=== PATIENT | male | born 1960 | race Caucasian/White ===

== ENCOUNTER 2018-12-08 02:44 | Observation (INO) ==
[2018-12-07 23:43] LABS: BASO# 0.04 X1000 (0.0-0.2); BASO% 0.6 % (0.0-0.8); EOS# 0.54 X1000 (0.0-0.7); EOS% 7.7 % (0.0-10.0); HEMATOCRIT 44.6 % (42.0-52.0); HEMOGLOBIN 15.4 g/dL (14.0-18.0); IMM GRAN# 0.02 X1000 (0.0-0.04); IMM GRAN% 0.3 % (0.0-0.5); LYMPH# 2.44 X1000 (1.2-3.4); LYMPH% 34.6 % (20.5-51.1); MCH 30.9 PG (27-31); MCHC 34.5 g/dL (33-37); MCV 89.4 FL (81-99); MONO# 1.05 X1000 (0.11-0.59); MONO% 14.9 % (1.7-9.3); MPV 9.4 FL (7.4-10.4); NEUT# 2.96 X1000 (1.4-6.5); NEUT% 41.9 % (42.2-75.2); PLT 243 X1000 (130-400); RBC 4.99 XMIL (4.7-6.1); RDW 13.1 % (11.5-14.5); WBC 7.05 X1000 (4.8-10.8)
[2018-12-07 23:53] LABS: INR 0.91
[2018-12-07 23:54] LABS: PTT 30.6 Seconds (22.3-41.8)
[2018-12-08 00:01] LABS: AGAP 12; ALB/GLOB RATIO 1.5; ALBUMIN 4.3 g/dL (3.5-5.0); ALKALINE PHOSPHATASE 84 U/L (32-122); BUN 16 mg/dL (8-22); CALCIUM 9.1 mg/dL (8.8-10.2); CHLORIDE 102 mmol/L (98-107); CK PROFILE 69 U/L (24-204); COSMO 280; CREATININE 0.7 mg/dL (0.7-1.2); ESTIMATED GFR > 60; GLUCOSE 119 mg/dL (70-104); GOT 19 U/L (10-34); GPT 25 U/L (10-44); POTASSIUM 4.1 mmol/L (3.5-5.1); SODIUM 139 mmol/L (136-145); TCO2 25 mmol/L (25-35); TOTAL BILIRUBIN 0.52 mg/dL (0.20-1.00); TOTAL PROTEIN 7.2 g/dL (6.3-8.3)
--- NOTE | 2018-12-08 01:56 | PROVIDER DOCUMENTATION ---
This chart was entered by Mariaa Zuniga Scribe, acting as scribe for Jarred Frankel MD. HPI-Respiratory General - General Chief Complaint: Chest Pain Stated Complaint: CHEST PAIN/SOB/BODY ACHES Time Seen by Provider: 12/07/18 23:35 Source: patient, family Allergies/Adverse Reactions: Patient Allergies Allergy/AdvReac Type Severity Reaction Status Date / Time Penicillins Allergy Severe ANAPHYLAXIS Verified 10/22/18 11:02 Home Medications: Home Medication List Medication Instructions Recorded Confirmed Last Taken Type Divalproex E.r. [Depakote ER] 1,000 mg PO BID 02/14/13 10/26/18 10/26/18 History Hydrocodone/Acetaminophen 1 tab PO PRN PRN 10/22/18 10/26/18 Unknown History [Hydrocodone-Acetamin 7.5-325] Albuterol Sulfate [Ventolin Hfa] 18 gm IH Q6H #1 hfa.aer.ad 10/23/18 10/26/18 Rx Albuterol 2.5MG/Ipratrop 0.5MG 3 ml INH Q6H PRN PRN #30 neb 11/03/18 Unknown Rx [Duoneb] Alprazolam [Xanax] 1 mg PO 4XDAY PRN PRN #30 tab 11/03/18 Unknown Rx Nebulizer Accessories [Nebulizer] 1 ea MC Q4H PRN PRN #1 kit 11/03/18 Unknown Rx Ketorolac [Toradol] 10 mg PO Q6H PRN PRN #20 tab 11/23/18 Unknown Rx - History of Present Illness-Resp Quality of Pain: reports: tightness Severity in ED: reports: mild Onset/Duration: reports: 1 week ago Timing: reports: still present Exposure: reports: other Cough Quality/Degree: reports: productive cough Episode Frequency: occasional episodes Current Respiratory Medication Therapy: Initiated albuterol/atrovent inhale Modifying Factors: improves with: nothing Associated Symptoms: reports: chest pain/soreness, cough, flu-like symptoms, hurts to breathe, shortness of breath, short of breath Review of Systems - Adult - REVIEW OF SYSTEMS - ADULT Constitutional: reports: see HPI Eyes: reports: no symptoms reported Ears, Nose, Mouth & Throat: reports: no symptoms reported Cardiovascular: reports: see HPI, chest pain Respiratory: reports: cough, pleurisy, shortness of breath Gastrointestinal: reports: no symptoms reported Genitourinary: reports: no symptoms reported Musculoskeletal: reports: no symptoms reported Integumentary: reports: no symptoms reported Neurological: reports: no symptoms reported Psychiatric: reports: no symptoms reported Endocrine: reports: no symptoms reported Hematologic/Lymphatic: reports: no symptoms reported Allergic/Immunologic: reports: no symptoms reported All Other Systems: Reviewed and Negative Past History - Adult - PAST MEDICAL HISTORY-ADULT Review of Records: reports: Nursing Assessment Review Major Childhood Illnesses: reports: denies history Cardiovascular: reports: denies history Respiratory: reports: COPD Gastrointestinal: reports: denies history Obstetrical/Gynecological: reports: denies history Genitourinary: reports: denies history Musculoskeletal: reports: arthritis Neurological: reports: Seizures/Epilepsy Psychiatric: reports: depression Endocrine/Immune: reports: denies history Other Conditions: reports: denies history - PRIOR SURGERIES/PROCEDURES Surgical/Procedure History: reports: reviewed, not pertinent - IMMUNIZATION STATUS Childhood Immunizations: See Nurse Assessment Flu Vaccine: See Nurse Assessment - FAMILY HISTORY Family History: reviewed, not pertinent - SOCIAL HISTORY Smoking: non-smoker Physical Exam-General - PHYSICAL EXAM-ADULT Initial Vital Signs Reviewed: Yes - CONSTITUTIONAL General Appearance: alert, mild distress - EYES Eyes: PERRL/EOMI - HEAD, EARS, NOSE, MOUTH & THROAT HENMT: moist mucous membranes, normal ENT inspection - NECK Neck: non-tender, full range of motion - RESPIRATORY Respiratory: respiratory distress - CARDIOVASCULAR Cardiovascular: normal peripheral pulses, regular rate, rhythm, tachycardia - GASTROINTESTINAL (ABDOMEN) Abdominal Exam: normal bowel sounds, non tender - LYMPHATIC Lymphatic: no adenopathy - MUSCULOSKELETAL Back Exam: normal inspection, no CVA tenderness, no vertebral tenderness Extremity: normal range of motion, non-tender - SKIN Integumentary: normal color, normal turgor, warm/dry - NEUROLOGIC Neurologic: grossly normal, no motor/sensory deficits - PSYCHIATRIC Psych/Mental Status: normal mood/affect, normal thought content, normal thought process Progress - PLAN OF CARE/RESULTS Progress/Plan/Lab Results: Vital Signs - 8 hr 12/07/18 23:25 Temperature 97.6 F Pulse Rate 85 Respiratory Rate 18 Blood Pressure 133/79 O2 Sat by Pulse Oximetry 97 Laboratory Results - last 24 hr 12/07/18 12/07/1819 23:35 23:35 23:35 WBC 7.05 RBC 4.99 Hgb 15.4 Hct 44.6 MCV 89.4 MCH 30.9 MCHC 34.5 RDW Std Deviation 13.1 Plt Count 243 MPV 9.4 Immature Gran % (Auto) 0.3 Neut % (Auto) 41.9 L Lymph % (Auto) 34.6 [place] % (Auto) 14.9 H Eos % (Auto) 7.7 Baso % (Auto) 0.6 Immature Gran # (Auto) 0.02 Neut # (Auto) 2.96 Lymph # (Auto) 2.44 [place] # (Auto) 1.05 H Eos # (Auto) 0.54 Baso # (Auto) 0.04 PT INR PTT (Actin FS) Sodium 139 Potassium 4.1 Chloride 102 Carbon Dioxide 25 Anion Gap 12 BUN 16 Creatinine 0.7 Estimated GFR/1.73 m2 > 60 BUN/Creatinine Ratio 23 Glucose 119 H Calculated Osmolality 280 Calcium 9.1 Total Bilirubin 0.52 AST 19 ALT 25 Alkaline Phosphatase 84 Creatine Kinase 69 Troponin T Lqn-O-Qxxwzgzifgm Pept 30 Total Protein 7.2 Albumin 4.3 Globulin 2.9 Albumin/Globulin Ratio 1.5 12/07/18 12/07/18 23:35 23:35 WBC RBC Hgb Hct MCV MCH MCHC RDW Std Deviation Plt Count MPV Immature Gran % (Auto) Neut % (Auto) Lymph % (Auto) [place] % (Auto) Eos % (Auto) Baso % (Auto) Immature Gran # (Auto) Neut # (Auto) Lymph # (Auto) [place] # (Auto) Eos # (Auto) Baso # (Auto) PT 13.0 INR 0.91 PTT (Actin FS) 30.6 Sodium Potassium Chloride Carbon Dioxide Anion Gap BUN Creatinine Estimated GFR/1.73 m2 BUN/Creatinine Ratio Glucose Calculated Osmolality Calcium Total Bilirubin AST ALT Alkaline Phosphatase Creatine Kinase Troponin T < 0.010 Zsp-A-Fkbgcmxrdig Pept Total Protein Albumin Globulin Albumin/Globulin Ratio Orders Category Date Time Status Cardiac Monitoring DIRECTED Care 12/07/18 23:28 Active Oxygen Therapy- ED Nursing DIRECTED Care 12/07/18 23:28 Active Saline Loc NOW Care 12/07/18 23:28 Active CHEST-2 VIEWS [RAD] Stat Exams 12/07/18 23:28 Taken CBC WITH ELECTRONIC DIFF [HEME] Stat Lab 12/07/18 23:35 Completed CK PROFILE [SP CHEM] Stat Lab 12/07/18 23:35 Completed COMPREHENSIVE METABOLIC PANEL [CHEM] Stat Lab 12/07/18 23:35 Completed PRO B-NATRIURETIC PEPTIDE Stat Lab 12/07/18 23:35 Completed PROTIME WITH INR [COAG] Stat Lab 12/07/18 23:35 Completed PTT [COAG] Stat Lab 12/07/18 23:35 Completed TROPONIN T Stat Lab 12/07/18 23:35 Completed Aspirin Med 12/07/18 23:30 Discontinued 243 mg PO NOW ONE Hydromorphone [Dilaudid] Med 12/08/18 01:06 Discontinued 1 mg IV NOW ONE Ondansetron [Zofran] Med 12/08/18 01:06 Discontinued 4 mg IV NOW ONE CP/SOB/Palp >45 yrs of Age Stat Oth 12/07/18 23:28 Ordered EKG [EKG] Stat Ther 12/07/18 23:28 Ordered heart score 4 Result Diagrams: 12/07/18 23:35 12/07/18 23:35 - EKG 1 Time of EKG reading by physician:: 23:29 EKG Read and Signed by:: Jarred Frankel EKG Interpretation (*Must complete 3 of following elements*): Normal Rate: 74 Rhythm: Norm sin rhy [place]: normal QRS: normal - XRAY 1 XRAY: Bilateral XRAY Study: Chest Impression: Normal (no acute disease per dr. frankel) - CONSULTS/PCP/HOSPITALIST Notification #1 *Consult/PCP/Hospitalist*: Dr. Virk Time Discussed: 01:54 Consult Disposition: Admit Departure - Departure Date of Disposition Decision: 12/08/18 Time of Disposition Decision: 01:27 DIAGNOSIS: Chest pain Disposition: ADMITTED INPATIENT 09 Certified Medical Emergency: Emergent Condition: Stable Referrals and Follow-Ups: Rachel Sarah MD [Primary Care Provider] - - Critical Care Note This patient required my direct & personal management of CC.: No Attestation - Physician/ MAURO Attestation Patient care was provided by Advanced Practice Provider:: No The physician spent face to face time with patient:: Yes Advanced Practice Provider documentation review:: Supervising physician onsite and consulted in the evaluation and care of this patient. The physician did have a face to face encounter with the patient. This chart was documented by the indicated scribe, (Mariaa Zuniga, Wilberto) and accurately reflects the services I performed and decisions made by me, Jarred Frankel MD, as attested by the provider's signature.
[~2018-12-08 02:44] MED LIST: ASPIRIN PO ONE; ASPIRIN PR ONE; DILAUDID IV ONE; ZOFRAN IV ONE
[2018-12-08] MEDS: NS 1,000 ML IV SCH ×3 (02:45→20:13)
[2018-12-08] MEDS: LOVENOX SUBQ SCH (02:45)
[2018-12-08] MEDS ORDERED: VENTOLIN HFA INH PRN (03:00)
[2018-12-08 03:13] LABS: CHOLESTEROL 178 mg/dL (0-200); HDL 44 mg/dL (35-55); LDL 115 mg/dL; TRIGLYCERIDES 93 mg/dL (39-160); VLDL 19 mg/dL
--- NOTE | 2018-12-08 03:24 | HISTORY AND PHYSICAL ---
PCP: Dr. Sarah. PRESENTING COMPLAINT: Shortness of breath and chest pain. HISTORY OF PRESENT COMPLAINT: Mr. Goodman is a 58-year-old male, who has recently been diagnosed with COPD, uses intermittent nebulization at home, and he has also stopped smoking for the past 2 months. Mr. Goodman refers that for the past week, he has been getting extremely winded especially on exertion. But today, he had done some work after which he went to sit down in a recliner, and he started having this chest pain, which started on a scale of about 4/10 and then progressively got worse. It was retrosternal in nature. Did not really move to anywhere, but it made both hands numb, and he felt slightly nauseated, but did not vomit. It was also associated with some dizziness. So he came to the emergency department, where he was evaluated and because of his age and risk factors. We are being consulted for cardiac risk stratification. On presentation, his blood pressure is 133/79. Pulse is 85. Respiration is 18. Temperature is 97.5 degrees. PAST MEDICAL HISTORY: 1. Recently admitted for questionable TIA. MRI was negative. 2. Seizures on Depakote. 3. Migraine headaches. 4. Newly diagnosed COPD. FAMILY HISTORY: 1. Positive for lung cancer. 2. Brother who also from COPD. SOCIAL HISTORY: The patient is has a 68-ckml-eesr history of smoking, but stopped about 2 months ago. Currently . Denies using alcohol or any illicit drugs. ALLERGIES: Penicillin. When I asked what it does to him, he said, "According to the , it makes him go crazy." PAST SURGICAL HISTORY: Right shoulder repair - surgery. REVIEW OF SYSTEM: A 14 point review of system conducted with Mr. Goodman unremarkable except what we have in the HPI. PHYSICAL EXAM: VITAL SIGNS: Blood pressure is 133/79, pulse is 85, respirations 18, temperature is 97.6 degrees. Patient is saturating 97% on room air. GENERAL: Mr. Goodman is a 58-year-old male. He is in bed. He did not seem to be in any cardiopulmonary distress. HEENT: Mucosa is pink and moist. Anicteric. Acyanotic. NECK: Was supple. There was no JVD. No carotid bruit. RESPIRATORY SYSTEM: Air entry was bilaterally reduced. There is prolonged expiratory phase of respiration, but no crackles, no rhonchi. CARDIOVASCULAR: Regular rate and rhythm. No murmurs, no rubs, no gallops. [place] beat was at 5th intercostal space, midclavicular line. GI: Abdomen was soft, nontender. Bowel sounds were present. There is no hepatosplenomegaly. Inguinal region is unremarkable. : Unremarkable. EXTREMITIES: No pedal edema. Distal pulses were present. 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 There is no focal neurological deficit. Executive function seems to be intact. The patient is very cooperative. Cranial nerves 2-12 have been grossly examined, and they are unremarkable. The patient obeys commands. Moves all extremities. Power is 5/5 in all. Sensation is intact. PSYCH: Mr. Goodman is very cooperative. Has good insight and judgment. LABORATORY DATA: WBC is 7.05, hemoglobin is 15.4, platelet count of 243,000. Chemistry is also reviewed and is completely normal. DIAGNOSTIC STUDIES: 1. A chest x-ray showed no acute pathology, the changes that is consistent with a history of COPD. 2. EKG shows normal sinus rhythm, questionable left ventricle hypertrophy. 3. Review of previous echocardiogram from 10/26/2018 showed ejection fraction was about 60%, and Doppler suggest grade 1 ventricular diastolic dysfunction. DISCUSSION: Mr. Goodman, who has extensive history of tobacco abuse, stopped just about 2 months ago upon the diagnosis of chronic obstructive pulmonary disease, comes in what appears to be atypical chest pain to rule out any coronary artery disease. ASSESSMENT: 1. Atypical chest pain in patient with comorbidities including borderline blood pressure elevation and extensive history of tobacco abuse. Pain sounds to be exertional in nature, so I think it is reasonable to admit him, and do cardiac risk stratification before he gets discharged. We will also going to be trending his troponin and repeat his EKG in the morning. 2. Recently diagnosed chronic obstructive pulmonary disease. The patient is currently not in exacerbation. We will continue p.r.n. nebulization if needed. 3. Borderline high blood pressure. We are going to continue to monitor this. So in general, we are going to admit Mr. Goodman on the medical floor and keep him NPO. He just had an echo last October, so will not repeat this. But we will get Cardiology to evaluate him. We will also get a stress test and go from there. If stress test is all negative, I think we can discharge him. cc: Keith Virk MD
--- NOTE | 2018-12-08 07:12 | Diag Imaging Result Doc PS360 ---
EXAM: CHEST-2 VIEWS 12/07/2018 HISTORY: CP/SOB TECHNIQUE: PA and lateral chest COMMENT: There has been no significant change in the appearance the chest since 11/23/2018. IMPRESSION: Stable chest. Electronically signed by Nixon Jin 12/08/2018 7:10 AM
--- NOTE | 2018-12-08 07:32 | EKG Report ---
Test Performed on : 12/07/2018 11:29:41 PM Test Reason : SOB,CP Blood Pressure : / mmHG Vent. Rate : 074 BPM Atrial Rate : 074 BPM P-R Int : 164 ms QRS Dur : 090 ms QT Int : 360 ms P-R-T Axes : 039 061 072 degrees QTc Int : 399 ms Normal sinus rhythm. Normal ECG When compared with ECG of 23-NOV-2018 18:20, (Unconfirmed) No significant change was found Unconfirmed Result
--- NOTE | 2018-12-08 09:58 | PROGRESS NOTE ---
DATE: 12/08/2018 INTERVAL HISTORY: Mr. Goodman is a 58-year-old man with recently diagnosed COPD, who is admitted for exertional chest pain and shortness of breath, numbness in hands, nausea, and dizziness. He has also been complaining of runny nose and yellowish expectoration. On admission, his troponins were negative. EKG had normal sinus rhythm. Chest x-ray was unremarkable. The patient is about to undergo for nuclear medicine stress test for cardiac risk factor stratification, considering his history of smoking and age, being risk factors for coronary artery disease. SUBJECTIVE: Currently, he is feeling fair. He is denying further chest pain episodes since coming to the hospital. He is still feeling a little congested in the chest and complaining of some substernal chest pain, which is not reproducible. VITALS: Temperature 97.7 degrees, pulse 72, blood pressure 120/70, saturating 96% on room air. PHYSICAL EXAMINATION: General: Does not appear in any acute distress. Nasal cavity: He has erythematous nasal turbinates with some mucoid discharge. Oral cavity: Moist. Some postnasal drip without pharyngeal congestion. Lungs: Air entry bilateral equal. No wheeze, rhonchi, or crackles. Cardiovascular: S1, S2 normal. No murmur, rub, or gallop. Abdomen: Soft, nontender. Extremities: No lower extremity edema. Neurologic: Alert and oriented x3. LABS: Suggestive of no leukocytosis. Normal hemoglobin, hematocrit, platelet count, normal electrolytes. Normal kidney function. Negative troponins. Microbiology: Flu screen has been ordered. IMAGING: Chest x-ray was unremarkable. EKG had normal sinus rhythm. ASSESSMENT AND PLAN: 1. Atypical chest pain with risk factors of age, male gender, tobacco use. His chest pain was occasionally exertional. Follow up with nuclear medicine stress test for cardiac risk stratification. 2. Nasal congestion, subjective feeling of shortness of breath, and expectoration without wheezing. Follow up with influenza screen. 3. History of chronic obstructive pulmonary disease. The patient was counseled about quitting smoking, which he already has since last 3 months. Continue albuterol/ ipratropium nebulization as needed. 4. Borderline high blood pressure on admission, now has resolved. 5. History of seizure disorder and migraine. Continue home Depakote. 6. History of anxiety. Continue home alprazolam. 7. Deep venous thrombosis prophylaxis on enoxaparin. 8. Disposition. I will await nuclear medicine stress test and patient's chest pain shortness of breath to improve. We will also await cardiology recommendation about need for aspirin for primary cardiovascular prevention in the future. Plan of care was discussed with him. All of his questions have been answered. If his symptoms resolve and nuclear medicine stress test is unremarkable, the patient can be discharged home on December 09. cc: Jase Osuna MD
[2018-12-08] MEDS: DEPAKOTE ER PO SCH ×2 (10:02→20:03)
[2018-12-08] MEDS: NORCO-7.5 PO PRN ×2 (10:07→20:20)
[2018-12-08] MEDS: DUONEB (A & A) INH PRN ×2 (10:13→21:30)
[2018-12-08] MEDS ORDERED: BLISTEX MEDICATED BERRY LIP BALM TOP ONE (10:20)
[2018-12-08] MEDS ORDERED: FLU VACCINE IM ONE (11:36)
--- NOTE | 2018-12-08 14:41 | CARDIOLOGY CONSULTATION ---
DATE: 12/08/2018 CHIEF COMPLAINT ON PRESENTATION: Chest pain, shortness of breath. HISTORY OF PRESENT ILLNESS: Mr. Goodman is a 58-year-old white male with a history of COPD, who has had issues with chest discomfort for the last 2 to 3 days. It has since resolved. During that 2-day or so, he had constant tightness in his chest. He reported no provokers or palliators, other than he thinks drinking some fruit juices that he would do, would improve it to some extent. He has had some cough lately with increased productivity. He has had some nasal congestion and sore throat. He was apparently out in the cold and felt like he might have caught an upper respiratory infection. He has not had any fevers. He is not having any orthopnea. He does not have any chest pain at present. PAST MEDICAL HISTORY: Significant for: 1. COPD. 2. Seizures. 3. Migraines. 4. Possible. SOCIAL HISTORY: He quit smoking around 2 months ago after a 30-drxw-norw history. He is . No current alcohol or illicit drugs. FAMILY HISTORY: Significant for hypertension. REVIEW OF SYSTEMS: A 10-system review of systems is negative except for those things mentioned in HPI. OBJECTIVE: Vital signs: He is afebrile, heart rate is 70, blood pressure is 110/68. General: He is in no acute distress. HENT: Oropharynx is moist. Poor dentition. Eye: [place] conjunctivae. White sclerae. Neck: Examination shows no obvious thyromegaly or thyroid tenderness. Cardiovascular: He sounds to be in a regular rate and rhythm. He has no obvious murmurs. He has no S3. He has no lower extremity edema. No carotid bruits. Chest: Exam sounds relatively clear to auscultation bilaterally. He has no increased work of breathing. Abdomen: Soft, nontender, nondistended. He has no obvious organomegaly. Skin: Warm and dry throughout without any rashes. Neurological: He is moving all extremities well. He has no lateralizing deficits. Psychiatric: He is alert and oriented and pleasant. He has normal mood and affect. PERTINENT DATA: He had an EKG that showed sinus rhythm. No signs of infarct. No signs of acute ischemic changes or injury pattern. His chest x-ray was unremarkable, being normal. His white count is 7, his hematocrit is 44, his platelet count is 243,000. His sodium is 139, potassium 4.1, BUN 16, creatinine 0.7. His cardiac enzymes are negative times multiple sets. His LDL was 115, his HDL was 44. ASSESSMENT: Mr. Goodman is a 58-year-old gentleman with risk factors for heart disease, who presented with atypical chest pain. PLAN: Patient has since had a nuclear perfusion scan which showed no evidence of ischemia and a normal ejection fraction. At this point, he could be discharged home from a cardiovascular standpoint. He can follow up with his primary care physician. I would recommend continued aggressive risk factor modification with continued smoking cessation. cc: Dave Chase MD
[2018-12-08] MEDS: XANAX PO PRN (17:22)
[2018-12-08] MEDS: ZOFRAN IV PRN (17:22)
[2018-12-09] MEDS: LOVENOX SUBQ SCH (03:35)
[2018-12-09] MEDS: DUONEB (A & A) INH PRN ×2 (03:37→10:49)
[2018-12-09 07:18] LABS: BASO# 0.05 X1000 (0.0-0.2); BASO% 1.1 % (0.0-0.8); EOS% 8.8 % (0.0-10.0); HEMATOCRIT 42.9 % (42.0-52.0); HEMOGLOBIN 14.7 g/dL (14.0-18.0); LYMPH# 1.62 X1000 (1.2-3.4); LYMPH% 35.5 % (20.5-51.1); MCH 30.9 PG (27-31); MCHC 34.3 g/dL (33-37); MCV 90.1 FL (81-99); MONO# 0.57 X1000 (0.11-0.59); MONO% 12.5 % (1.7-9.3); MPV 9.5 FL (7.4-10.4); NEUT# 1.92 X1000 (1.4-6.5); NEUT% 42.1 % (42.2-75.2); PLT 221 X1000 (130-400); RBC 4.76 XMIL (4.7-6.1); RDW 13.2 % (11.5-14.5); WBC 4.56 X1000 (4.8-10.8)
[2018-12-09 07:24] LABS: INR 0.96; PROTIME 13.6 Seconds (11.0-16.0)
[2018-12-09 07:40] LABS: AGAP 9; ALB/GLOB RATIO 1.5; ALBUMIN 3.7 g/dL (3.5-5.0); ALKALINE PHOSPHATASE 79 U/L (32-122); BUN 9 mg/dL (8-22); CALCIUM 8.9 mg/dL (8.8-10.2); CHLORIDE 104 mmol/L (98-107); COSMO 276; CREATININE 0.7 mg/dL (0.7-1.2); ESTIMATED GFR > 60; GLUCOSE 93 mg/dL (70-104); GOT 13 U/L (10-34); GPT 19 U/L (10-44); MAGNESIUM 2.1 mg/dL (1.5-2.7); POTASSIUM 4.2 mmol/L (3.5-5.1); SODIUM 139 mmol/L (136-145); TCO2 26 mmol/L (25-35); TOTAL BILIRUBIN 0.81 mg/dL (0.20-1.00); TOTAL PROTEIN 6.2 g/dL (6.3-8.3)
[2018-12-09] MEDS: DEPAKOTE ER PO SCH ×2 (08:47→20:17)
[2018-12-09] MEDS: ZOFRAN IV PRN (08:48)
--- NOTE | 2018-12-09 09:38 | Diag Imaging Result Document ---
PROCEDURE NAME: MYOCARDIAL PERF SCAN, STR/REST - 12/08/2018 PROCEDURE PERFORMED: Lexiscan Cardiolite stress test. FINDINGS: Lexiscan was infused per standard protocol. There was no chest pain. Stress electrocardiogram was negative for ischemia. Following Lexiscan infusion, Cardiolite was injected. There were 10.8 mCi of Cardiolite injected for the rest phase and 30.9 mCi of Cardiolite injected for the stress phase. Gated SPECT images were obtained in standard views. Images revealed diaphragmatic and chest wall attenuation. There is no evidence of ischemia. There is fixed defect, moderate size, in the inferior wall and in the inferoapical wall suggestive of scar or attenuation defect. Left ventricular ejection fraction by gated SPECT was 79%. CONCLUSIONS: 1. No chest pain. 2. Negative Lexiscan stress electrocardiogram. 3. Myocardial perfusion images revealed no evidence of ischemia. 4. There is significant diaphragmatic and chest wall attenuation. There is moderate-size fixed defect in the inferior, inferoapical wall. This could represent attenuation defect versus scar. Would recommend clinical correlation. 5. Left ventricular ejection fraction 79%. cc: MD Keith Millan MD
[2018-12-09] MEDS: NORCO-7.5 PO PRN ×2 (10:57→18:41)
[2018-12-09] MEDS ORDERED: SOLU-MEDROL IV ONE (14:48)
[2018-12-09] MEDS ORDERED: SOLU-MEDROL IV SCH (15:00)
[2018-12-09] MEDS: DUONEB (A & A) INH SCH ×3 (15:24→23:42)
[2018-12-09] MEDS: PROTONIX IV SCH (15:50)
[2018-12-09] MEDS: FLONASE NAS SCH (15:51)
--- NOTE | 2018-12-09 15:58 | PROGRESS NOTE ---
DATE: 12/09/2018 SUBJECTIVE: This patient is still complaining of chest pain which is atypical. He got a stress test that is negative for any acute ischemic lesion. He has been complaining of cough with some yellowish phlegm. Today, he has some end expiratory wheezing. He has a history of COPD and he stopped smoking about 2 months ago. He also has been having nausea and vomiting, and he states that he has epigastric pain, some burning-like sensation. So, I will put this patient on PPIs twice a day, Carafate. I will put this patient on a little bit of steroids because of his wheezing. I will start this patient on azithromycin as well and breathing treatment. He has been having some runny nose as well, but now he feels like he cannot breathe through his nose. OBJECTIVE: Vital Signs: Temperature 97.3 degrees, pulse 76, respiratory rate 14, blood pressure 108/67, oxygen saturation 95% on room air. HEENT: Head: Normocephalic, no trauma. PERRLA. Poor dentition, multiple cavities. Neck: Supple. No JVD. Central trachea. Submandibular lymphadenopathy which are painful. Chest: Decreased breath sounds globally. Prolonged expiratory phase with faint end expiratory wheezing at the bases. Abdomen: Soft, nontender, nondistended. No hepatosplenomegaly. Extremities: No edema. No clubbing. No cyanosis. Neurological examination: The patient is alert and oriented x3. No focal deficits. LABORATORY: WBC 4.5, hemoglobin 14.7, hematocrit 42.9, platelets 221. Sodium 139, potassium 4.2, chloride 104, bicarbonate 26. BUN 9, creatinine 0.7, glucose 93, calcium 8.3, albumin 3.7. ASSESSMENT AND PLAN: 1. Atypical chest pain. This is likely secondary to a bronchitis and/or severe gastritis. For that I will put this patient on proton pump inhibitors, Carafate, antibiotics, breathing treatment and will monitor. Steroids. 2. Nasal congestion. I will use Nasonex to see if that helps. Influenza A and B have been negative. 3. Chronic obstructive pulmonary disease with mild exacerbation. He stopped smoking 2 months ago, and his plan is to continue that way. I have placed this patient on scheduled breathing treatment. He is wheezing a little bit and having some green-yellowish phlegm. Also, I will put this patient on antibiotics. 4. History of seizure disorder and migraine. Continue with his home medications. 5. History of anxiety. Continue with alprazolam. 6. Deep vein thrombosis prophylaxis with Lovenox. This patient had a stress test done that did not show any acute abnormality. do believe his symptoms are more related to a combination of gastritis and mild COPD. I will treat him for that and I will continue with the same management. I believe this patient can be discharged in 1 or 2 days. cc: Addison King MD
[2018-12-09] MEDS: ZITHROMAX 500 MG/NS 500 MG/250 ML IVPB IV SCH (16:01)
[2018-12-09] MEDS: TESSALON PO SCH (16:09)
[2018-12-09] MEDS: XANAX PO PRN (16:09)
[2018-12-09] MEDS: CARAFATE PO SCH ×2 (16:09→20:17)
[2018-12-09] MEDS: SOLU-MEDROL IV SCH (20:17)
[2018-12-10] MEDS: SODIUM CHLORIDE 0.9% INJ SCH ×2 (02:58→19:40)
[2018-12-10] MEDS: ZOFRAN IV PRN ×2 (02:58→08:56)
[2018-12-10] MEDS: LOVENOX SUBQ SCH (02:58)
[2018-12-10] MEDS: PROTONIX IV SCH ×2 (02:58→19:40)
[2018-12-10] MEDS: DUONEB (A & A) INH SCH ×6 (03:34→23:00)
[2018-12-10] MEDS: XANAX PO PRN ×4 (04:33→20:23)
[2018-12-10] MEDS: SOLU-MEDROL IV SCH ×2 (04:34→19:40)
[2018-12-10] MEDS: CARAFATE PO SCH ×4 (06:25→20:23)
--- NOTE | 2018-12-10 06:42 | Diag Imaging Result Doc PS360 ---
EXAM: CHEST-PORTABLE HISTORY: dyspnea TECHNIQUE: Portable chest single view COMPARISON: 12/07/2018 FINDINGS: The lungs are well expanded. The heart is not enlarged. The vessels are not distended. There are no infiltrates. No effusion identified. IMPRESSION: Negative exam. Electronically signed by Feliberto Reid 12/10/2018 6:39 AM
[2018-12-10 07:52] LABS: HEMATOCRIT 40.8 % (42.0-52.0); HEMOGLOBIN 13.7 g/dL (14.0-18.0); IMM GRAN# 0.02 X1000 (0.0-0.04); IMM GRAN% 0.2 % (0.0-0.5); LYMPH# 0.58 X1000 (1.2-3.4); LYMPH% 7.1 % (20.5-51.1); MCH 30.1 PG (27-31); MCHC 33.6 g/dL (33-37); MCV 89.7 FL (81-99); MONO# 0.15 X1000 (0.11-0.59); MONO% 1.8 % (1.7-9.3); MPV 9.9 FL (7.4-10.4); NEUT# 7.38 X1000 (1.4-6.5); NEUT% 90.9 % (42.2-75.2); PLT 224 X1000 (130-400); RBC 4.55 XMIL (4.7-6.1); RDW 12.7 % (11.5-14.5); WBC 8.13 X1000 (4.8-10.8)
[2018-12-10 08:09] LABS: AGAP 16; BUN 14 mg/dL (8-22); CALCIUM 9.7 mg/dL (8.8-10.2); CHLORIDE 96 mmol/L (98-107); COSMO 276; CREATININE 0.9 mg/dL (0.7-1.2); ESTIMATED GFR > 60; GLUCOSE 165 mg/dL (70-104); SODIUM 136 mmol/L (136-145); TCO2 24 mmol/L (25-35)
[2018-12-10 08:21] LABS: BANDS 2 % (0-1); LYMPHS 6 % (21-51); SEGS 92 % (42-75)
[2018-12-10] MEDS: DEPAKOTE ER PO SCH ×2 (08:32→20:23)
[2018-12-10] MEDS: FLONASE NAS SCH (08:32)
[2018-12-10] MEDS: TESSALON PO SCH ×3 (08:32→19:45)
[2018-12-10] MEDS: NORCO-7.5 PO PRN ×2 (08:38→20:23)
[2018-12-10] MEDS ORDERED: PHENERGAN IV PRN (13:25)
[2018-12-10] MEDS ORDERED: SODIUM CHLORIDE 0.9% INJ PRN (13:25)
--- NOTE | 2018-12-10 15:27 | PROGRESS NOTE ---
DATE: 12/10/2018 SUBJECTIVE: This patient is still complaining of nausea, vomiting, as per the nurse he is not able to keep anything down not even the pills, physical exam he is short of breath. He is wheezing more than yesterday and he is still having epigastric discomfort with some burning sensation there. He is extremely anxious about his COPD because he has family members that because of this disease. We have placed this patient on his Xanax, I will continue with Zofran, I have placed a consult for Gastroenterology Department to treat possible severe gastritis versus intractable nausea and vomiting. Vital signs look okay. He has been tachycardic on and off but the respiratory rate has been stable. Occasionally the respiratory rate goes over 20 to 21, 22. Oxygen saturation in the low 90s without oxygen. OBJECTIVE: Vital Signs: Temperature 98.1 degrees, pulse 106, respiratory rate 16, blood pressure 107/57, oxygen saturation 94 on room air. HEENT: Head normocephalic. No trauma. PERRLA. Poor dentition. Multiple cavities. Neck: Supple. No JVD. Central trachea. Submandibular lymphadenopathy which are painful. Chest: Decreased breath sounds globally. Prolonged expiratory phase with expiatory wheezing. Abdomen: Soft, some tenderness to palpation at the level of the epigastric area, nondistended. No hepatosplenomegaly. Neurological: The patient is alert and oriented x3, he looks anxious today, no focal deficit. LABORATORY: WBC 8.1, hemoglobin 13.7, hematocrit 40.8, platelets 224,000, sodium 136, potassium 5, chloride 96, bicarbonate 24, BUN 14, creatinine 0.9, glucose 165, calcium 9.7. ASSESSMENT AND PLAN: 1. Atypical chest pain, I do believe this is secondary to bronchitis/ mild chronic obstructive pulmonary disease exacerbation, severe gastritis, I will continue PPIs, Carafate, antibiotics, breathing treatment, I have requested an evaluation by Gastroenterology Department, he has been having nausea and vomiting. 2. Nausea and vomiting as above. Continue with Zofran. 3. Chronic obstructive pulmonary disease exacerbation, he stopped smoking 2 months ago, I have placed this patient on scheduled breathing treatment, he is coughing up a little bit of yellowish phlegm, I will continue with antibiotics, steroids. 4. Possible severe gastritis. Continue with Carafate and PPIs. 5. History of seizure disorder and migraine, continue home medications. 6. History of anxiety, he looks really anxious today, I will continue with his medications that he has been taking at home. 7. Deep vein thrombosis prophylaxis with Lovenox. cc: Addison iKng MD
[2018-12-10] MEDS: ZITHROMAX 500 MG/NS 500 MG/250 ML IVPB IV SCH (19:40)
[2018-12-11] MEDS: DUONEB (A & A) INH SCH ×5 (03:30→19:15)
[2018-12-11] MEDS: LOVENOX SUBQ SCH (06:24)
[2018-12-11] MEDS: CARAFATE PO SCH ×4 (06:24→20:36)
[2018-12-11] MEDS: PROTONIX IV SCH ×2 (06:24→16:03)
[2018-12-11] MEDS: SOLU-MEDROL IV SCH ×2 (06:24→16:03)
[2018-12-11 07:32] LABS: AGAP 11; BUN 13 mg/dL (8-22); CALCIUM 9.7 mg/dL (8.8-10.2); CHLORIDE 101 mmol/L (98-107); COSMO 281; CREATININE 0.7 mg/dL (0.7-1.2); ESTIMATED GFR > 60; GLUCOSE 130 mg/dL (70-104); POTASSIUM 4.5 mmol/L (3.5-5.1); SODIUM 140 mmol/L (136-145); TCO2 28 mmol/L (25-35)
[2018-12-11] MEDS: NORCO-7.5 PO PRN ×2 (08:21→15:59)
[2018-12-11] MEDS: TESSALON PO SCH ×3 (08:22→20:36)
[2018-12-11] MEDS: XANAX PO PRN ×2 (08:22→16:00)
[2018-12-11] MEDS: DEPAKOTE ER PO SCH ×2 (08:22→20:37)
[2018-12-11] MEDS: FLONASE NAS SCH (08:23)
[2018-12-11] MEDS: SODIUM CHLORIDE 0.9% INJ SCH (16:03)
[2018-12-11] MEDS: ZITHROMAX 500 MG/NS 500 MG/250 ML IVPB IV SCH (18:25)
[2018-12-11 19:39] LABS: UR AMPHETAMINES QUAL NONE DETECTED (NONE DETECT); UR BARBITUATES QUAL NONE DETECTED (NONE DETECT); UR BENZODIAZEPIN QUAL PRESUMPTIVE POSITIVE (NONE DETECT); UR CANNABINOIDS QUAL NONE DETECTED (NONE DETECT); UR COCAINE QUAL NONE DETECTED (NONE DETECT); UR METHADONE QUAL NONE DETECTED (NONE DETECT); UR OPIATES QUAL PRESUMPTIVE POSITIVE (NONE DETECT); UR OXYCODONE QUAL NONE DETECTED (NONE DETECT); UR PCP QUAL NONE DETECTED (NONE DETECT)
[2018-12-11 20:25] VITALS: BP 114/62
[2018-12-11 20:51] LABS: HEMATOCRIT 42.1 % (42.0-52.0); HEMOGLOBIN 14.1 g/dL (14.0-18.0); IMM GRAN# 0.02 X1000 (0.0-0.04); IMM GRAN% 0.2 % (0.0-0.5); LYMPH# 0.59 X1000 (1.2-3.4); LYMPH% 5.7 % (20.5-51.1); MCH 30.9 PG (27-31); MCHC 33.5 g/dL (33-37); MCV 92.1 FL (81-99); MONO% 4.9 % (1.7-9.3); MPV 9.8 FL (7.4-10.4); NEUT# 9.17 X1000 (1.4-6.5); NEUT% 89.2 % (42.2-75.2); PLT 217 X1000 (130-400); RBC 4.57 XMIL (4.7-6.1); RDW 13.3 % (11.5-14.5); WBC 10.28 X1000 (4.8-10.8)
[2018-12-11 21:28] LABS: LYMPHS 7 % (21-51); MONO 1 % (1-9); SEGS 92 % (42-75)
[2018-12-11 21:29] LABS: HYPOCHROM OCCASIONAL
--- NOTE | 2018-12-11 23:06 | PROGRESS NOTE ---
DATE: 12/11/2018 SUBJECTIVE: This patient is not complaining of nausea and vomiting at this moment, as per the nurse when he gets water or any kind of drinks he drinks a lot and then he started having nausea or vomiting, I sat with the patient for at least 50 minutes, his vital signs are stable as well as his lab work, he is medically clear to be discharged but he is really anxious and he is depressed. While talking to the patient he was crying on and off, he state that he does not want to be a problem for his family, he state that he does not want them to be dealing with his problem, he state that there is no reason to basically be alive, he said I would put a gun in my head and shoot myself, then I tried to talk more about the reason why he believes he is depressed and anxious, he said that since he find out that he has COPD he stopped smoking, he started drinking more fruit juice, eating more healthy and even though he is doing that he feels about the same. He cannot do any kind of physical activity, he also told me that he saw his brother dying in front of him and that will happen to him that is why he does not want the family to be around when that happened, when he dies. I told him I do not want to send you home because I do not want you to hurt yourself, he responded to me doctor believe me I will do what I said. Like I mentioned before, all the vital signs and laboratory are stable, medically he is clear but he is severely depressed and anxious. OBJECTIVE: Vital Signs: Temperature 97.9 degrees, pulse 80, respiratory rate 18, blood pressure 102/66, oxygen saturation 97 on room air. HEENT: Head normocephalic. No trauma. PERRLA. Neck: Supple. No JVD. No masses. Central trachea. Chest: Clear to auscultation. Decreased breath sounds mostly at the bases with a prolonged expiratory phase. No wheezing. Abdomen: Soft, some tenderness to palpation at the level of the epigastric area. Nondistended. No hepatosplenomegaly. Neurological: This patient is alert and oriented x3. He is anxious and depressed, he has been crying during my conversation on and off, he has been thinking about killing himself and the plan is to put a gun in his head. LABORATORY: Sodium 140, potassium 4.5, chloride 101, bicarbonate 28, BUN 13, creatinine 0.7, glucose 130, calcium 9.7. ASSESSMENT AND PLAN: 1. Atypical chest pain status post a stress test which has been negative, probably was more related to bronchitis/mild chronic obstructive pulmonary disease but I feel is already resolved, will continue with the same management and if his discharged or transferred he can go with p.o. medication. 2. Nausea and vomiting, resolved. As long as he is not eating a lot of water continuously he feels okay. 3. Chronic obstructive pulmonary disease exacerbation, he stopped smoking 2-1/2 months ago. I have placed this patient on scheduled breathing treatment, his cough is better and actually during my interview today he did not cough, I will continue with antibiotics and I will change the steroids to p.o. 4. Possible gastritis, continue with Carafate and PPIs. 5. History of seizure disorder and migraine, continue with home medication. 6. History of anxiety, he has been looking anxious for a few days. I will continue with the medication that he was taking at home but he also is depressed. 7. Depression, as per the patient he does not want the family to be around when he dies but in the other hand he states that nobody has been visiting him, everybody is too busy to come, they do not care about me, he has been thinking about killing himself and the plan is to put a gun in his head. We will contact [facility] for a psychiatry evaluation. I do not feel safe sending this patient home. cc: Addison King MD
--- NOTE | 2018-12-13 06:02 | EKG Report ---
Test Performed on : 12/11/2018 8:24:45 PM Test Reason : transfer to [facility] Blood Pressure : / mmHG Vent. Rate : 084 BPM Atrial Rate : 084 BPM P-R Int : 152 ms QRS Dur : 090 ms QT Int : 352 ms P-R-T Axes : 077 043 052 degrees QTc Int : 415 ms Normal sinus rhythm. Normal ECG When compared with ECG of 07-DEC-2018 23:29, (Unconfirmed) No significant change was found Unconfirmed Result
--- NOTE | 2018-12-15 01:55 | DISCHARGE SUMMARY ---
ADMISSION DATE: 12/10/2018 DISCHARGE DATE: 12/11/2018 DISCHARGE DIAGNOSIS: 1. Atypical chest pain status post stress test which has been negative. 2. Nausea and vomiting, resolved. 3. Possible gastritis. 4. Severe depression with suicidal ideation. 5. Mild chronic obstructive pulmonary disease exacerbation. 6. History of seizure disorder and migraines. 7. Anxiety. HOSPITAL COURSE: 58-year-old male recently diagnosed with chronic obstructive pulmonary disease, uses intermittent nebulization at home and he also has stopped smoking for the past 2 months. He was admitted on 12/08/2018. As per the patient for a week prior to the admission he has been getting extremely winded especially on its own excursion but the day of admission he had done some work after which he went to sit down in a recliner and he started having chest pain, intensity 4/10 and then progressively getting worse. It was retrosternal in nature, nonradiating but it made both hands numb and he felt nauseated but did not vomit also associated with dizziness. He presented to emergency department and was evaluated and because of his age and risk factors we consulted Cardiology Department, they did a nuclear stress test that basically is normal, no acute ischemic lesions at that moment. During the course of his hospitalization also he was started feeling short of breath and started having some scattered wheezing, per the patient also he was coughing up a little bit of greenish yellowish sputum so we went ahead and put him on breathing treatment, steroids, antibiotics but we started noticing that the patient shortness of breath was more related to anxiety than actually the COPD. I sat with him and we had a really large conversation about what causing his shortness of breath and chest pain and I realized that this patient was severely depressed. When I asked him about if he wants to hurt himself or others he told me that he will basically put a gun in his head and finish off, I contacted [facility] to evaluate this patient and they have decided to take the patient for evaluation and treatment. At the moment of discharge this patient was in a stable medical condition tolerating p.o., ambulating and like I said the shortness of breath was more anxiety and depression than any kind of organic problem. PHYSICAL EXAMINATION: Vital signs: Temperature 97.3 degrees, pulse 82, respiratory rate 19, blood pressure 114/62, oxygen saturation 96 on room air. HEENT: Head normocephalic. No trauma. PERRLA. Neck: Supple. No JVD. No masses. Central trachea. Chest: Clear to auscultation. Decreased breath sounds at the bases with prolonged expiratory phase. Abdomen: Soft, nontender, nondistended. No hepatosplenomegaly. Extremities: No edema, no clubbing, no cyanosis. Neurologic: The patient is alert and oriented x3. He was anxious and depressed and he was crying on and off during the conversation and he is suicidal and he has a plan to kill himself. LABORATORY: WBC. 10.2, hemoglobin 14.1, hematocrit 42.1, platelets 217,000, sodium 140, potassium 4.5, chloride 101, bicarbonate 28, BUN 13, creatinine 0.7, glucose 130, calcium 9.7. DISCHARGE MEDICATIONS: He will be discharged with his home medications, breathing treatment, steroids and antibiotics, the rest of the medications per [facility]. cc: Addison King MD
== END 2018-12-11 23:38 ==
LOC: DIRADM 02:44 → SUATTDRO 04:48 → EDIPHOLD 04:48 → 3N 12:15 → DIRADM 12:16 → UNDODISIN 12-11 22:38
PROVIDERS: ADMIT Family Medicine; ATTEND Family Medicine
CPT/HCPCS: 71010; 71020; 71045; 71046; 78452; 80048; 80053; 80061; 80101; 80164; 80165; 80301; 80307; 80324; 80345; 80346; 80353; 80358; 80361; 80365; 82550; 82948; 83735; 83880; 83992; 84443; 84484; 85025; 85610; 85730; 87275; 87276; 87804; 93005; 93017; 94640; 94761; 96372; 96374; 96375; 96376; 99285; A9270; A9500; C9113; G0378; G0431; G0434; G0479; G0480; J0456; J1170; J1650; J2405; J2920; J7030; S0164; XXXXX

== ENCOUNTER 2019-01-27 21:25 | Inpatient (IN) ==
--- NOTE | 2019-01-27 22:01 | Diag Imaging Result Doc PS360 ---
EXAM: CHEST-2 VIEWS 01/27/2019 HISTORY: cough copd congestion TECHNIQUE: PA and lateral chest COMMENT: There is atelectasis versus pneumonia in the left lower lobe. This is worse than on 01/26/2019. There is blunting of the posterior costophrenic angles. This was not present on 01/24/2019. IMPRESSION: Bilateral pleural effusions. Left lower lobe atelectasis and/or pneumonia. Electronically signed by Nixon Jin 01/27/2019 9:59 PM
[2019-01-27] MEDS ORDERED: TESSALON PO ONE (23:20)
[2019-01-27] MEDS ORDERED: LEVAQUIN PO ONE (23:27)
[2019-01-27] MEDS ORDERED: TORADOL IM ONE (23:28)
[2019-01-27] MEDS ORDERED: ALBUTEROL NEB INH ONE (23:31)
[2019-01-27 23:50] LABS: BE 3.5 mmoll (-3.0-3.0); BLOOD TYPE ARTERIAL; HCO3-(ACT) 27.6 mmoll (20.0-26.0); METHB 1.1 % (0.0-1.5); O2(CT) 16.5 mL/dL (15.0-23.0); O2HB 95.7 % (95.0-99.0); PCO2(98.6) 40 mmHg (35-45); PO2(98.6) 86 mmHg (60-100); SAMPLE BLOOD; SAO2 99.6 % (95.0-100.0); THB 12.2 g/dL (11.5-17.4); pH(98.6) 7.45 (7.35-7.45)
[2019-01-27 23:53] LABS: ALLEN TEST YES; MODALITY ROOM AIR
[2019-01-28 01:13] LABS: BASO# 0.02 X1000 (0.0-0.2); BASO% 0.3 % (0.0-0.8); EOS# 0.02 X1000 (0.0-0.7); EOS% 0.3 % (0.0-10.0); HEMATOCRIT 39.7 % (42.0-52.0); HEMOGLOBIN 13.5 g/dL (14.0-18.0); IMM GRAN# 0.02 X1000 (0.0-0.04); IMM GRAN% 0.3 % (0.0-0.5); LYMPH# 2.14 X1000 (1.2-3.4); LYMPH% 35.1 % (20.5-51.1); MCH 31.4 PG (27-31); MCV 92.3 FL (81-99); MONO# 0.88 X1000 (0.11-0.59); MONO% 14.4 % (1.7-9.3); MPV 9.6 FL (7.4-10.4); NEUT# 3.02 X1000 (1.4-6.5); NEUT% 49.6 % (42.2-75.2); PLT 157 X1000 (130-400); RDW 13.4 % (11.5-14.5)
[2019-01-28 01:53] LABS: AGAP 8; ALBUMIN 3.5 g/dL (3.5-5.0); ALKALINE PHOSPHATASE 54 U/L (32-122); BUN 16 mg/dL (8-22); CALCIUM 8.3 mg/dL (8.8-10.2); CHLORIDE 107 mmol/L (98-107); COSMO 283; CREATININE 0.7 mg/dL (0.7-1.2); ESTIMATED GFR > 60; GLUCOSE 108 mg/dL (70-104); GOT 18 U/L (10-34); GPT 26 U/L (10-44); POTASSIUM 3.9 mmol/L (3.5-5.1); SODIUM 141 mmol/L (136-145); TCO2 26 mmol/L (25-35); TOTAL PROTEIN 6.1 g/dL (6.3-8.3)
--- NOTE | 2019-01-28 02:08 | PROVIDER DOCUMENTATION ---
This chart was entered by Mariaa Zuniga Scribe, acting as scribe for Hamida Austin MD. HPI-Respiratory General - General Chief Complaint: Return/Recheck Stated Complaint: SOB (COPD), CHEAT PAIN Time Seen by Provider: 01/27/19 22:45 Source: patient Allergies/Adverse Reactions: Patient Allergies Allergy/AdvReac Type Severity Reaction Status Date / Time Penicillins Allergy Severe ANAPHYLAXIS Verified 01/22/19 09:34 Home Medications: Home Medication List Medication Instructions Recorded Confirmed Last Taken Type Albuterol 2.5MG/Ipratrop 0.5MG 3 ml INH Q6H PRN PRN #30 neb 11/03/18 12/12/18 12/11/18 21:00 Rx [Duoneb (A & A)] Albuterol Sulfate [Ventolin Hfa] 1 puff IH Q6H 12/12/18 12/12/18 12/11/18 21:00 History Omeprazole 40 mg PO DAILY 12/12/18 12/12/18 Unknown History Cholecalciferol (Vit D3) [Vitamin 1,000 unit PO DAILY #30 tab 12/15/18 Unknown Rx D3] Divalproex E.r. [Depakote ER] 1,000 mg PO BID 30 Days tablet 12/15/18 Unknown Rx Duloxetine [Cymbalta] 30 mg PO DAILY 30 Days capsule 12/15/18 Unknown Rx Folic Acid 1 mg PO DAILY #30 tab 12/15/18 Unknown Rx Levetiracetam [Keppra] 500 mg PO BID #60 tab 12/15/18 Unknown Rx Olanzapine [Zyprexa] 2.5 mg PO QHS 30 Days tablet 12/15/18 Unknown Rx Albuterol Sulfate Inhaler 2 puff INH Q6H PRN PRN #1 inhaler 01/22/19 Unknown Rx [Ventolin Hfa] Azithromycin [Zithromax Z-Jacob] 250 mg PO DIRECTED #1 pkg 01/22/19 Unknown Rx D-Methorphan/P-Epd/Bpm [Bromfed Dm 5 ml PO Q4H PRN #120 ml 01/22/19 Unknown Rx Liquid] Prednisone 20 mg PO DIRECTED #18 tab 01/22/19 Unknown Rx Benzonatate [Tessalon Perle] 100 mg PO BID 5 Days #10 cap 01/25/19 Unknown Rx Hydrocodone/Chlorphen Polis 5 ml PO Q12H #50 udc 01/26/19 Unknown Rx [Tussionex Liquid] Methylprednisolone [Medrol Dosepak] 4 mg PO DIRECTED #1 pkg 01/26/19 Unknown Rx - History of Present Illness-Resp Nature of Presenting Problem: 58 yom presents to er w/ cp, ear congestion, fever, chills, sob, and body aches for 3 weeks. pt was dx w/bronchitis recently at [facility] and was given azythromycin and prednisone and states it is not helping. pt monitors o2 at home and states it was as low as 85-88. pt denies nvd. Quality of Pain: reports: aching Review of Systems - Adult - REVIEW OF SYSTEMS - ADULT Constitutional: reports: see HPI, chills, fever, other (body aches). denies: fatique, night sweats Eyes: reports: no symptoms reported Ears, Nose, Mouth & Throat: reports: see HPI, ear pain, sinus problem. denies: ear discharge, throat pain Cardiovascular: reports: see HPI, chest pain (prodimately left sided). denies: heart murmur, irregular heart rate, orthopnea Respiratory: reports: see HPI, cough, shortness of breath. denies: dyspnea on exertion, excessive sputum production, hemoptysis Gastrointestinal: reports: no symptoms reported. denies: abdominal pain, diarrhea, nausea, vomiting Genitourinary: reports: no symptoms reported Musculoskeletal: reports: no symptoms reported Integumentary: reports: no symptoms reported Neurological: reports: no symptoms reported Psychiatric: reports: no symptoms reported Endocrine: reports: no symptoms reported Hematologic/Lymphatic: reports: no symptoms reported Allergic/Immunologic: reports: no symptoms reported All Other Systems: Reviewed and Negative Past History - Adult - PAST MEDICAL HISTORY-ADULT Review of Records: reports: Old Records Reviewed, Nursing Assessment Review, Medications Reviewed, Social history reviewed & non-contributory. Major Childhood Illnesses: reports: denies history Cardiovascular: reports: denies history Respiratory: reports: COPD Gastrointestinal: reports: denies history Obstetrical/Gynecological: reports: denies history Genitourinary: reports: denies history Musculoskeletal: reports: arthritis Neurological: reports: Seizures/Epilepsy, TIA Psychiatric: reports: depression Endocrine/Immune: reports: denies history Other Conditions: reports: denies history - PRIOR SURGERIES/PROCEDURES Surgical/Procedure History: reports: reviewed, not pertinent, orthopedic (extremity) (right shoulder) - IMMUNIZATION STATUS Childhood Immunizations: See Nurse Assessment Flu Vaccine: See Nurse Assessment - FAMILY HISTORY Family History: reviewed, not pertinent - SOCIAL HISTORY Smoking: other (former) Substance Use: none/never Physical Exam-General - PHYSICAL EXAM-ADULT Initial Vital Signs Reviewed: Yes - CONSTITUTIONAL General Appearance: alert, mild distress - EYES Eyes: PERRL/EOMI, pink conjunctivae - HEAD, EARS, NOSE, MOUTH & THROAT HENMT: normocephalic/atraumatic, moist mucous membranes, normal ENT inspection - NECK Neck: non-tender, full range of motion, supple, normal inspection - RESPIRATORY Respiratory: chest non-tender, lungs clear, normal breath sounds - CARDIOVASCULAR Cardiovascular: normal peripheral pulses, regular rate, rhythm - GASTROINTESTINAL (ABDOMEN) Abdominal Exam: normal bowel sounds, non tender, soft - LYMPHATIC Lymphatic: no adenopathy - MUSCULOSKELETAL Back Exam: normal inspection, no CVA tenderness, no vertebral tenderness Extremity: normal range of motion, non-tender, normal inspection Peripheral Pulses: radial (R): 2+, radial (L): 2+ - SKIN Integumentary: normal color, normal turgor, warm/dry - 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, grossly normal, no motor/sensory deficits - PSYCHIATRIC Psych/Mental Status: normal mood/affect, normal thought content, normal thought process, oriented x 3 Progress - PLAN OF CARE/RESULTS Progress/Plan/Lab Results: Vital Signs - 8 hr 01/27/19 21:26 01/27/19 23:51 Temperature 97.6 F Pulse Rate 88 75 Respiratory Rate 18 16 Blood Pressure 122/84 O2 Sat by Pulse Oximetry 92 L 97 Laboratory Results - last 24 hr 01/27/19 01/27/19 01/28/19 00:59 23:35 00:59 WBC 6.10 RBC 4.30 L Hgb 13.5 L Hct 39.7 L MCV 92.3 MCH 31.4 H MCHC 34.0 RDW Std Deviation 13.4 Plt Count 157 MPV 9.6 Immature Gran % (Auto) 0.3 Neut % (Auto) 49.6 Lymph % (Auto) 35.1 Glasscock % (Auto) 14.4 H Eos % (Auto) 0.3 Baso % (Auto) 0.3 Immature Gran # (Auto) 0.02 Neut # (Auto) 3.02 Lymph # (Auto) 2.14 Glasscock # (Auto) 0.88 H Eos # (Auto) 0.02 Baso # (Auto) 0.02 Specimen Type ARTERIAL Sample Site L RADIAL pH 7.45 pCO2 40 pO2 86 HCO3 27.6 H Base Excess 3.5 H Oxyhemoglobin 95.7 ABG O2 Sat (Calculated) 16.5 ABG O2 Saturation 99.6 ABG Carboxyhemoglobin 2.90 H ABG Methemoglobin 1.1 Edwar Test YES A-a O2 Difference 14.0 Total Hemoglobin 12.2 Lactate 1.30 Blood Gas Modality ROOM AIR FiO2 % 21.0 Sodium Potassium Chloride Carbon Dioxide Anion Gap BUN Creatinine Estimated GFR/1.73 m2 BUN/Creatinine Ratio Glucose Calculated Osmolality Calcium Total Bilirubin AST ALT Alkaline Phosphatase Troponin T < 0.010 Vsf-K-Aqilvalwkej Pept Total Protein Albumin Globulin Albumin/Globulin Ratio 01/28/19 01/28/19 00:59 00:59 WBC RBC Hgb Hct MCV MCH MCHC RDW Std Deviation Plt Count MPV Immature Gran % (Auto) Neut % (Auto) Lymph % (Auto) Glasscock % (Auto) Eos % (Auto) Baso % (Auto) Immature Gran # (Auto) Neut # (Auto) Lymph # (Auto) Glasscock # (Auto) Eos # (Auto) Baso # (Auto) Specimen Type Sample Site pH pCO2 pO2 HCO3 Base Excess Oxyhemoglobin ABG O2 Sat (Calculated) ABG O2 Saturation ABG Carboxyhemoglobin ABG Methemoglobin Edwar Test A-a O2 Difference Total Hemoglobin Lactate Blood Gas Modality FiO2 % Sodium 141 Potassium 3.9 D Chloride 107 Carbon Dioxide 26 Anion Gap 8 BUN 16 Creatinine 0.7 Estimated GFR/1.73 m2 > 60 BUN/Creatinine Ratio 23 Glucose 108 H Calculated Osmolality 283 Calcium 8.3 L Total Bilirubin 0.20 AST 18 ALT 26 Alkaline Phosphatase 54 Troponin T Qfk-Z-Ovdxgbufwft Pept 115 Total Protein 6.1 L Albumin 3.5 Globulin 3.0 Albumin/Globulin Ratio 1.0 Orders Category Date Time Status Admit - [facility] Routine AdmDCTranf 01/28/19 02:03 Active Vital Signs Order Q 8-HR .ASSESS Care 01/28/19 02:03 Active Heart Healthy Diet Diet 01/28/19 02:05 Active CHEST-2 VIEWS [RAD] Stat Exams 01/27/19 21:35 Completed ABG [RESP] Routine Lab 01/27/19 23:35 Completed BNP [PRO B-NATRIURETIC PEPTIDE] Stat Lab 01/28/19 00:59 Completed CBC WITH ELECTRONIC DIFF [HEME] Stat Lab 01/28/19 00:59 Completed CMP [COMPREHENSIVE METABOLIC PANEL] [CHEM] Stat Lab 01/28/19 00:59 Completed TROPONIN T Stat Lab 01/27/19 00:59 Completed Albuterol [Albuterol Neb] Med 01/27/19 23:31 Discontinued 2.5 mg INH NOW ONE Benzonatate [Tessalon] Med 01/27/19 23:20 Discontinued 100 mg PO NOW ONE Doxycycline Med 01/28/19 09:00 Ordered 100 mg PO DAILY Ketorolac [Toradol] Med 01/27/19 23:28 Discontinued 30 mg IM NOW ONE Levofloxacin 750 mg/D5w [Levaquin 750 mg/D5w] Med 01/28/19 07:00 Ordered 750 mg in 150 ml IV Q24H Levofloxacin [Levaquin] Med 01/27/19 23:27 Discontinued 500 mg PO NOW ONE Aerosol Treatments Routine Oth 01/27/19 23:32 Completed Aerosol Treatments Stat Oth 01/27/19 23:32 Completed EKG [EKG] Stat Ther 01/27/19 23:20 Ordered Transfer/Admit Order [TRANSFER] Routine Transfer 01/28/19 02:06 Ordered Result Diagrams: 01/28/19 00:59 01/28/19 00:59 - REASSESSMENT Reassessment #1 Time Reassessed: 02:07 (failed outpatient PNA treatment, will admit for o bservation. dr. mendez recommends for doxycycline added to his regimen. ) - XRAY 1 XRAY: Bilateral XRAY Study: Chest (EXAM: CHEST-2 VIEWS 01/27/2019 HISTORY: cough copd congestion TECHNIQUE: PA and lateral chest COMMENT: There is atelectasis versus pneumonia in the left lower lobe. This is worse than on 01/26/2019. There is blunting of the posterior costophrenic angles. This was not present on 01/24/2019. IMPRESSION: Bilateral pleural effusions. Left lower lobe atelectasis and/or pneumonia. Electronically signed by Nixon Jin 01/27/2019 9:59 PM) Impression: Abnormal Departure - Departure Date of Disposition Decision: 01/28/19 Time of Disposition Decision: 02:08 DIAGNOSIS: Hypoxia, Left lower lobe pneumonia Disposition: ADMITTED INPATIENT 09 Certified Medical Emergency: Emergent Condition: Stable Referrals and Follow-Ups: Rachel Sarah MD [Primary Care Provider] - - Critical Care Note This patient required my direct & personal management of CC.: No Attestation - Physician/ MAURO Attestation Patient care was provided by Advanced Practice Provider:: No The physician spent face to face time with patient:: Yes Advanced Practice Provider documentation review:: Supervising physician onsite and consulted in the evaluation and care of this patient. The physician did have a face to face encounter with the patient. This chart was documented by the indicated scribe, (Maraia Zuniga Scribe) and accurately reflects the services I performed and decisions made by me, Hamida Austin MD, as attested by the provider's signature.
[2019-01-28] MEDS: LEVAQUIN 750 MG/D5W 750 MG/150 ML IVPB IV SCH (06:21)
[2019-01-28] MEDS ORDERED: DUONEB (A & A) INH PRN ×2 (07:41→09:53)
[2019-01-28] MEDS: CYMBALTA PO SCH (08:56)
[2019-01-28] MEDS: KEPPRA PO SCH ×2 (08:56→20:57)
[2019-01-28] MEDS: DEPAKOTE ER PO SCH ×2 (08:56→20:57)
[2019-01-28] MEDS: FOLIC ACID PO SCH (08:56)
[2019-01-28] MEDS: PRILOSEC PO SCH (08:56)
[2019-01-28] MEDS: DOXYCYCLINE PO SCH (09:09)
--- NOTE | 2019-01-28 09:44 | EKG Report ---
Test Performed on : 01/28/2019 01:58:02 AM Test Reason : CP Blood Pressure : / mmHG Vent. Rate : 070 BPM Atrial Rate : 070 BPM P-R Int : 122 ms QRS Dur : 098 ms QT Int : 382 ms P-R-T Axes : 000 054 041 degrees QTc Int : 412 ms Normal sinus rhythm. Normal ECG When compared with ECG of 26-JAN-2019 05:28, (Unconfirmed) premature ventricular complexes. are no longer present Vent. rate has decreased BY 41 BPM Unconfirmed Result
[2019-01-28] MEDS ORDERED: ROBITUSSIN-AC PO PRN (09:50)
[2019-01-28] MEDS: SOLU-MEDROL IV SCH ×2 (10:42→18:58)
[2019-01-28] MEDS: DUONEB (A & A) INH SCH ×4 (11:06→22:38)
[2019-01-28] MEDS: NORCO-7.5 PO PRN ×2 (11:20→20:56)
--- NOTE | 2019-01-28 13:12 | HISTORY AND PHYSICAL ---
CHIEF COMPLAINT: Shortness of breath, chills, fever, and body aches for 3 weeks. HISTORY OF PRESENT ILLNESS: This is a 58-year-old gentleman with a history of COPD, gastroesophageal reflux disease, seizure disorder, and migraine headaches. He presented to the emergency room complaining of about 3 weeks of chest pain, ear congestion, fever, chills, and body aches. He was evaluated in the emergency room on 01/11, 01/22, 01/24 and 01/26 all complaining of COPD, low oxygen levels at home, and once with his fingers tingling. In review of the records, he had oxygen saturations that were primarily 94 to 97 although he did have one of 90 on the on room air. During these weeks, he received a Z-Jacob, prednisone taper, as well as steroid Dosepak as well as various cough syrups and a Ventolin inhaler. He stated that he has had no improvement in symptoms during this time with this output in his treatment. Therefore, he returned to the emergency room. Chest x-ray revealed left lower lobe atelectasis and/or pneumonia. PAST MEDICAL HISTORY: COPD, TIA, seizure disorder, gastroesophageal reflux disease, and migraine headaches. PAST SURGICAL HISTORY: Right shoulder surgery and sinus surgery. SOCIAL HISTORY: He denies alcohol, tobacco, or illicit drug use. ALLERGIES: Penicillin which causes anaphylaxis. HOME MEDICATIONS: A list will be obtained by the nursing staff and reviewed, and will restart as appropriate. REVIEW OF SYSTEMS: Discussed with the patient with pertinent positives stated in the HPI. He denied any syncope, dizziness, any palpitations, productive cough, any nausea, vomiting, diarrhea, constipation, black or bloody vomitus or stools, any hematuria, dysuria, frequency, or urgency. PHYSICAL EXAMINATION: GENERAL: This is a 58-year-old gentleman who is sitting up in the bed in no distress. VITAL SIGNS: Blood pressure is 117/73 with a heart rate of 80, respirations are 18, temperature is 97.4 degrees with O2 saturations that have been 92 to 95 all on room air. EYES: Pupils are equal, round, react to light. EOMs are intact. Sclerae anicteric. HEENT: Head is normocephalic, atraumatic. Mucous membranes are moist. NECK: Supple with trachea midline. He has no JVD. CARDIOVASCULAR: Regular rate and rhythm. S1 and S2 appreciated. He has no lower extremity edema. Peripheral pulses palpable x4 extremities. Calves are nontender to palpation. PULMONARY: Breath sounds with expiratory wheezes noted throughout. Chest rises and falls symmetric respiration. Chest wall is nontender to palpation. GASTROINTESTINAL: Abdomen is soft, nontender, and nondistended. Bowel sounds in all 4 quadrants. GENITOURINARY: He has no CVA or suprapubic tenderness. NEUROLOGIC: He is alert and oriented x3. SKIN: Warm and dry. LABORATORY: WBC is 6.1, hemoglobin 13.5, hematocrit 39.7, and platelets of 157,000. Sodium is 141, potassium 3.9, BUN 16, creatinine 0.7 with a glucose of 108. Blood cultures are pending. Chest x-ray revealed bilateral pleural effusions with left lower lobe atelectasis and/or pneumonia that has increased compared to 01/26/2019 x-ray. ASSESSMENT AND PLAN: 1. Left lower lobe pneumonia with failed outpatient treatment. 2. Hypoxemia per ABGs. 3. Chronic obstructive pulmonary disease with mild exacerbation. 4. Seizure disorder. 5. History of migraine headaches. 6. Gastroesophageal reflux disease. 7. DVT and GI prophylaxis. The patient has been admitted to the medical-surgical floor. We will continue to monitor vital signs as well as oxygen saturations. We will start DuoNeb q.4 hours with q.2 hours p.r.n. We will give steroids to taper. We will identify his home medications and continue as is appropriate. We will continue Levaquin and doxycycline as ordered in the emergency room, and further antibiotics will be culture driven. We will repeat a CBC and BMP in the morning. We will start incentive spirometer. For DVT prophylaxis, will use Lovenox and GI prophylaxis and Prilosec. Further treatments pending hospital course. Dictated by FELICITAS Robles for Karsten Orona MD This chart was documented by, FELICITAS Robles and accurately reflects the services performed, treatment plan and medical decisions as attested by the providers signature Karsten Orona MD. cc: FELICITAS Robles MD
[2019-01-28] MEDS: ZYPREXA PO SCH (20:56)
[2019-01-28] MEDS: TESSALON PO SCH (20:57)
[2019-01-29] MEDS: SOLU-MEDROL IV SCH ×3 (01:04→21:20)
--- NOTE | 2019-01-29 01:53 | HISTORY AND PHYSICAL ---
ADDENDUM: Patient seen and examined by myself. Full note dictated and discussed with nurse practitioner. The patient presented to the hospital with shortness of breath, fevers, chills and body aches. He was subsequently diagnosed with pneumonia. States he stopped smoking approximately 4 months ago. Prior to that had at least a 40 pack-year history of smoking. We will admit him to the hospital, place him on antibiotics, IV fluids, and we will follow. cc: Karsten Orona MD
[2019-01-29] MEDS: DUONEB (A & A) INH SCH ×6 (03:07→23:15)
[2019-01-29] MEDS: LEVAQUIN 750 MG/D5W 750 MG/150 ML IVPB IV SCH (06:22)
[2019-01-29] MEDS: PRILOSEC PO SCH (06:22)
[2019-01-29 07:22] LABS: HEMATOCRIT 39.6 % (42.0-52.0); HEMOGLOBIN 13.4 g/dL (14.0-18.0); IMM GRAN# 0.01 X1000 (0.0-0.04); IMM GRAN% 0.2 % (0.0-0.5); LYMPH% 12.8 % (20.5-51.1); MCH 30.8 PG (27-31); MCHC 33.8 g/dL (33-37); MONO# 0.12 X1000 (0.11-0.59); MONO% 2.2 % (1.7-9.3); MPV 9.9 FL (7.4-10.4); NEUT# 4.62 X1000 (1.4-6.5); NEUT% 84.8 % (42.2-75.2); PLT 167 X1000 (130-400); RBC 4.35 XMIL (4.7-6.1); RDW 12.9 % (11.5-14.5); WBC 5.45 X1000 (4.8-10.8)
[2019-01-29 07:33] LABS: AGAP 13; BUN 17 mg/dL (8-22); CALCIUM 8.3 mg/dL (8.8-10.2); CHLORIDE 104 mmol/L (98-107); COSMO 285; CREATININE 0.6 mg/dL (0.7-1.2); ESTIMATED GFR > 60; GLUCOSE 141 mg/dL (70-104); POTASSIUM 4.2 mmol/L (3.5-5.1); SODIUM 141 mmol/L (136-145); TCO2 24 mmol/L (25-35)
[2019-01-29] MEDS: KEPPRA PO SCH ×2 (08:24→20:47)
[2019-01-29] MEDS: TESSALON PO SCH ×2 (08:24→20:47)
[2019-01-29] MEDS: CYMBALTA PO SCH (08:24)
[2019-01-29] MEDS: FOLIC ACID PO SCH (08:24)
[2019-01-29] MEDS: DEPAKOTE ER PO SCH ×2 (08:24→20:47)
[2019-01-29] MEDS: DOXYCYCLINE PO SCH (08:25)
[2019-01-29] MEDS: NORCO-7.5 PO PRN ×2 (08:25→17:05)
[2019-01-29] MEDS ORDERED: FLU VACCINE IM ONE (09:00)
[2019-01-29] MEDS ORDERED: SOLU-MEDROL IV SCH (16:00)
[2019-01-29] MEDS ORDERED: G.I. COCKTAIL PO ONE (17:06)
--- NOTE | 2019-01-29 17:34 | EKG Report ---
Test Performed on : 01/29/2019 5:03:30 PM Test Reason : CHEST PAIN Blood Pressure : / mmHG Vent. Rate : 087 BPM Atrial Rate : 087 BPM P-R Int : 142 ms QRS Dur : 100 ms QT Int : 354 ms P-R-T Axes : 074 059 054 degrees QTc Int : 425 ms Normal sinus rhythm. Normal ECG When compared with ECG of 28-JAN-2019 01:58, (Unconfirmed) No significant change was found Unconfirmed Result
[2019-01-29] MEDS: ZYPREXA PO SCH (20:47)
--- NOTE | 2019-01-30 00:18 | PROGRESS NOTE ---
DATE: 01/29/2019 SUBJECTIVE: Patient notes that he is feeling a lot better. Still having some coughing, but improved, nonproductive. Denies any chest pain. Notes that his shortness of breath is still significant when he is attempting to ambulate to the restroom and back. Denies any fevers or chills currently. PHYSICAL EXAMINATION: Vital Signs: Temperature 97.5 degrees, pulse 85, respiratory 18, BP 107/65. General: Patient is very pleasant to talk with. He is in no current respiratory distress while he is lying flatly in the bed. HEENT: Normocephalic. Neck: Supple. Cardiovascular: Regular rate. Chest: Decreased but equal breath sounds bilaterally. Mild wheezing bilaterally. Abdomen: Soft, nondistended. Extremities: Moves all extremities. Neurologic: No changes. ASSESSMENT: 1. Left lower lobe pneumonia, failed outpatient management. 2. Hypoxic respiratory failure, acute. 3. Chronic obstructive pulmonary disease with mild exacerbation. 4. Seizure disorder. 5. Chronic reflux. PLAN: We will continue patient in the hospital. Continue antibiotics, IV fluids, steroids, oxygen and follow. cc: Karsten Orona MD
[2019-01-30] MEDS: DUONEB (A & A) INH SCH ×6 (03:46→23:08)
[2019-01-30] MEDS: PRILOSEC PO SCH (06:09)
[2019-01-30 06:21] LABS: HEMATOCRIT 40.2 % (42.0-52.0); HEMOGLOBIN 13.5 g/dL (14.0-18.0); IMM GRAN# 0.02 X1000 (0.0-0.04); IMM GRAN% 0.2 % (0.0-0.5); LYMPH# 0.89 X1000 (1.2-3.4); LYMPH% 10.9 % (20.5-51.1); MCH 30.5 PG (27-31); MCHC 33.6 g/dL (33-37); MCV 90.7 FL (81-99); MONO# 0.58 X1000 (0.11-0.59); MONO% 7.1 % (1.7-9.3); MPV 9.8 FL (7.4-10.4); NEUT# 6.66 X1000 (1.4-6.5); NEUT% 81.8 % (42.2-75.2); PLT 181 X1000 (130-400); RBC 4.43 XMIL (4.7-6.1); RDW 13.1 % (11.5-14.5); WBC 8.15 X1000 (4.8-10.8)
[2019-01-30 06:55] LABS: AGAP 13; BUN 18 mg/dL (8-22); CALCIUM 8.4 mg/dL (8.8-10.2); CHLORIDE 103 mmol/L (98-107); COSMO 282; CREATININE 0.6 mg/dL (0.7-1.2); ESTIMATED GFR > 60; GLUCOSE 149 mg/dL (70-104); POTASSIUM 4.1 mmol/L (3.5-5.1); SODIUM 139 mmol/L (136-145); TCO2 23 mmol/L (25-35)
[2019-01-30] MEDS: SOLU-MEDROL IV SCH ×3 (08:43→21:23)
[2019-01-30] MEDS: LEVAQUIN PO SCH (08:43)
[2019-01-30] MEDS: FOLIC ACID PO SCH (08:43)
[2019-01-30] MEDS: DEPAKOTE ER PO SCH ×2 (08:44→20:43)
[2019-01-30] MEDS: TESSALON PO SCH ×2 (08:44→20:42)
[2019-01-30] MEDS: CYMBALTA PO SCH (08:44)
[2019-01-30] MEDS: DOXYCYCLINE PO SCH (08:44)
[2019-01-30] MEDS: KEPPRA PO SCH ×2 (08:44→20:43)
[2019-01-30] MEDS: NORCO-7.5 PO PRN ×2 (12:34→20:50)
[2019-01-30] MEDS: LACTULOSE PO PRN ×2 (17:16→21:26)
[2019-01-30] MEDS: ZYPREXA PO SCH (20:43)
[2019-01-30] MEDS ORDERED: LACTULOSE PO SCH (21:00)
--- NOTE | 2019-01-30 21:42 | PROGRESS NOTE ---
DATE: 01/30/2019 SUBJECTIVE: Patient notes that he is feeling better, but still not back to normal. His breathing has improved. Denies any fevers or chills. PHYSICAL EXAMINATION: Temp 97.5, pulse 82, respiratory rate 18, BP 100/66.General: Patient is in mild respiratory distress, improved from yesterday. HEENT: Normocephalic. Neck: Supple. Cardiovascular: Regular rate. Chest: Minimal wheezing, greatly decreased. Abdomen: Soft. Extremities: Moves all extremities. ASSESSMENT: 1. Left lower lobe pneumonia. 2. Hypoxic respiratory failure. 3. COPD, with exacerbation. 4. Chronic tobacco abuse. The patient has a greater than 40 pack-year history. Stopped approximately 4 months ago. 5. History of seizures. PLAN: We will continue patient in the hospital. We will decrease Solu-Medrol to 40 IV q.8. Continue Levaquin and doxycycline and will follow. Hopefully, home over the next 1 or 2 days. cc: Karsten Orona MD
[2019-01-31] MEDS: DUONEB (A & A) INH SCH ×6 (03:13→23:06)
[2019-01-31] MEDS: PRILOSEC PO SCH (06:24)
[2019-01-31] MEDS: CYMBALTA PO SCH (09:39)
[2019-01-31] MEDS: FOLIC ACID PO SCH (09:39)
[2019-01-31] MEDS: SOLU-MEDROL IV SCH ×2 (09:39→21:04)
[2019-01-31] MEDS: LEVAQUIN PO SCH (09:40)
[2019-01-31] MEDS: TESSALON PO SCH ×2 (09:40→21:03)
[2019-01-31] MEDS: DEPAKOTE ER PO SCH ×2 (09:40→21:03)
[2019-01-31] MEDS: DOXYCYCLINE PO SCH (09:40)
[2019-01-31] MEDS: KEPPRA PO SCH ×2 (09:40→21:03)
[2019-01-31] MEDS: LACTULOSE PO PRN ×2 (09:52→21:13)
--- NOTE | 2019-01-31 10:42 | EKG Report ---
Test Performed on : 01/31/2019 10:33:01 AM Test Reason : CP Blood Pressure : / mmHG Vent. Rate : 079 BPM Atrial Rate : 079 BPM P-R Int : 140 ms QRS Dur : 102 ms QT Int : 356 ms P-R-T Axes : 070 039 051 degrees QTc Int : 408 ms Normal sinus rhythm. Normal ECG When compared with ECG of 29-JAN-2019 17:03, (Unconfirmed) No significant change was found Unconfirmed Result
[2019-01-31] MEDS: NORCO-7.5 PO PRN (11:17)
[2019-01-31] MEDS: MIRALAX PO SCH (11:18)
[2019-01-31] MEDS: ROCEPHIN 1 GM in NS 50 ML IV SCH (18:17)
--- NOTE | 2019-01-31 18:34 | PROGRESS NOTE ---
DATE: 01/31/2019 SUBJECTIVE: The patient has no major complaints. He wants something for medication. The patient seems to be doing better. The patient is doing okay. He is concerned that he can't cough up anything, but his lungs sound pretty clear. LABORATORY DATA: White count is 8, hemoglobin and hematocrit 13 and 40, platelets of 181,000. Basic was normal. His saturations are pretty good, 93 to 100 percent on room air. PROBLEM LIST: 1. Left lower lobe pneumonia. Clinically, he has improved. I think he is probably ready to go home here soon. Continue antibiotics. He is on Levaquin and doxycycline. 2. Chronic obstructive pulmonary disease exacerbation. We will continue nebulizer treatments steroids and follow. 3. Tobacco abuse. Advised on cessation, but he stopped about 4 months ago. DISPOSITION: I think he is probably okay to go home. He has a history of seizures, so we may need to consider something else besides Levaquin. I will probably try Rocephin. We are going to continue to follow closely. DISPOSITION: Plan to anticipate discharge soon, possibly in the a.m. cc: Eder Mckee MD
[2019-01-31] MEDS: MUCOMYST 20% INH SCH (19:24)
[2019-01-31] MEDS: ZYPREXA PO SCH (21:03)
[2019-01-31] MEDS: MUCINEX PO SCH (21:03)
[2019-02-01] MEDS: DUONEB (A & A) INH SCH ×6 (03:21→22:40)
[2019-02-01] MEDS: TYLENOL PO PRN ×2 (05:05→20:55)
[2019-02-01] MEDS: PRILOSEC PO SCH (06:27)
[2019-02-01] MEDS: LACTULOSE PO PRN ×2 (06:30→21:02)
[2019-02-01] MEDS: MUCOMYST 20% INH SCH ×2 (07:45→22:40)
[2019-02-01] MEDS: TESSALON PO SCH ×2 (10:07→20:52)
[2019-02-01] MEDS: MUCINEX PO SCH ×2 (10:07→20:52)
[2019-02-01] MEDS: KEPPRA PO SCH ×2 (10:07→20:52)
[2019-02-01] MEDS: MIRALAX PO SCH (10:08)
[2019-02-01] MEDS: DEPAKOTE ER PO SCH ×2 (10:08→20:52)
[2019-02-01] MEDS: FOLIC ACID PO SCH (10:08)
[2019-02-01] MEDS: CYMBALTA PO SCH (10:08)
[2019-02-01] MEDS: SOLU-MEDROL IV SCH (10:08)
[2019-02-01] MEDS: DOXYCYCLINE PO SCH ×2 (10:08→20:52)
[2019-02-01] MEDS ORDERED: BLISTEX MEDICATED BERRY LIP BALM TOP ONE (12:53)
[2019-02-01] MEDS: NORCO-7.5 PO PRN (13:42)
[2019-02-01] MEDS: ROBITUSSIN-AC PO PRN ×2 (17:02→21:50)
[2019-02-01] MEDS: ROCEPHIN 1 GM in NS 50 ML IV SCH (18:32)
--- NOTE | 2019-02-01 20:50 | PROGRESS NOTE ---
DATE: 02/01/2019 SUBJECTIVE: He seems improved. Breathing has improved. He has a persistent cough that really has not gone away, but he is breathing much better. OBJECTIVE: Vital Signs: Blood pressure is 120/68, heart rate 105, respirations 16, temperature 97.7, 95% on 2 L. Cardiovascular: Regular rate and rhythm. Pulmonary: Bilateral breath sounds. Clear to auscultation. GI: Soft, nontender, nondistended. Bowel sounds are positive. Extremities: No clubbing or cyanosis and in fact have no peripheral edema. LABORATORY DATA: White count 8, hemoglobin and hematocrit 13 and 40. This is data from a couple of days ago. PROBLEM LIST: 1. Left lower lobe pneumonia. He seems pretty stable. He has been on Levaquin and doxycycline. The only reason they stopped the Levaquin is because of his seizure history. 2. Chronic obstructive pulmonary disease exacerbation, appears to be stable. I am going to wean steroids. DISPOSITION: I think can anticipate discharge tomorrow. We are going to get a home O2 evaluation and follow. cc: Eder Mckee MD
[2019-02-01] MEDS: ZYPREXA PO SCH (20:51)
[2019-02-02] MEDS: DUONEB (A & A) INH SCH ×4 (02:51→15:36)
[2019-02-02] MEDS: LACTULOSE PO PRN ×2 (03:19→10:56)
[2019-02-02] MEDS: PRILOSEC PO SCH (06:17)
[2019-02-02] MEDS: MUCOMYST 20% INH SCH (07:35)
[2019-02-02] MEDS: MIRALAX PO SCH (08:44)
[2019-02-02] MEDS: FOLIC ACID PO SCH (08:46)
[2019-02-02] MEDS: MUCINEX PO SCH (08:46)
[2019-02-02] MEDS: KEPPRA PO SCH (08:46)
[2019-02-02] MEDS: CYMBALTA PO SCH (08:46)
[2019-02-02] MEDS: DOXYCYCLINE PO SCH (08:46)
[2019-02-02] MEDS: TESSALON PO SCH (08:46)
[2019-02-02] MEDS: DEPAKOTE ER PO SCH (08:46)
[2019-02-02] MEDS: NORCO-7.5 PO PRN (08:48)
[2019-02-02] MEDS ORDERED: SOLU-MEDROL IV SCH (09:00)
[2019-02-02] MEDS: TYLENOL PO PRN (11:11)
[2019-02-02 16:05] VITALS: BP 123/71
--- NOTE | 2019-02-02 21:52 | DISCHARGE SUMMARY ---
ADMISSION DATE: 01/28/2019 DISCHARGE DATE: 02/02/2019 DISCHARGE DIAGNOSES: 1. Chronic obstructive pulmonary disease exacerbation. 2. Pneumonia. DISCHARGE ADDENDUM: Clinically, the patient is stabilizing. On day of discharge, he is breathing comfortably. He did qualify for home oxygen. With exertion, his saturations dropped to 87% with exercise but then recovered. He was felt stable for discharge. We will discharge him on Omnicef, doxycycline, Medrol Dosepak, and breathing treatments. This is a [id number] encounter note with FELICITAS Montemayor. cc: Eder Mckee MD
--- NOTE | 2019-02-02 22:05 | DISCHARGE SUMMARY ---
ADMISSION DATE: 01/28/2019 DISCHARGE DATE: 02/02/2019 PRIMARY CARE PHYSICIAN: Rachel Sarah MD. ADMISSION DIAGNOSES: 1. Left lower lobe pneumonia with failed outpatient treatment. 2. Hypoxemia per arterial blood gases. 3. Mild exacerbation of chronic obstructive pulmonary disease. 4. Seizure disorder. 5. History of migraine headaches. 6. Gastroesophageal reflux disease. DISCHARGE DIAGNOSES: 1. Left lower lobe pneumonia with failed outpatient treatment, improved. 2. Chronic obstructive pulmonary disease exacerbation, improved. 3. Hypoxemia, resolved. 4. Seizure disorder. 5. History of migraine headaches. 6. Gastroesophageal reflux disease. SUMMARY OF FINDINGS: This is a 58-year-old male, who presented with a 3-week history of chest pain, ear congestion, fever, chills, and body aches. Was evaluated in the emergency room on 01/11, 01/22, 01/24 and 01/26, all complaining of COPD and low oxygen levels at home. In review of those records, he had an oxygen saturation that was primarily 94-97 percent, although he did have one low O2 saturation of 90% on the on room air. During these weeks he had received a Z- Jacob, prednisone taper, a steroid Dosepak, cough syrup and a Ventolin inhaler. He states he had no improvement in his symptoms during this time with his outpatient treatment. Therefore, he returned to the emergency room. His chest x-ray now revealed left lower lobe atelectasis and/or pneumonia, so he was admitted. Placed on DuoNeb's. Did a steroid taper. Placed on IV antibiotics. We weaned his steroids. He has been afebrile for greater than 24 hours. O2 saturation of 100% on room air now and it is felt that he can safely be discharged home. DISCHARGE MEDICATIONS: Depakote ER 1000 mg p.o. b.i.d., prescription for doxycycline 100 mg p.o. b.i.d. #14 with no refills. [place] 7.5 one p.o. p.r.n., Keppra 500 mg p.o. b.i.d., olanzapine 2.5 mg p.o. at bedtime. Omeprazole 40 mg p.o. daily. Prescription for DuoNeb q.6 hours #120 with 1 refill. Prescription for Omnicef 300 mg p.o. b.i.d. #14 with no refills. Vitamin D3 1000 units p.o. daily and a prescription for Medrol Dosepak to take as directed. FOLLOWUP: He will follow up with his primary care physician in 1 to 2 weeks and call the office for an appointment. He will also have home health services. TIME SPENT: This is 35 minute discharge. Dictated by FELICITAS Montemayor for Eder Mckee MD cc: FELICITAS Montemayor MD Bhavna Gowda, MD
== END 2019-02-02 17:20 | disposition home health service (06) | DRG 190 ==
LOC: P.ED 21:25 → P.MEDSURG 01-28 02:19 → SUATTDRO 01-28 02:19 → P.MEDSURG 01-28 02:55
PROVIDERS: ATTEND Internal Medicine
CPT/HCPCS: 71010; 71020; 71045; 71046; 80048; 80053; 82550; 82805; 83605; 83880; 84484; 85025; 87040; 93005; 94640; 94667; 94668; 94761; 94799; 96372; 96374; 99284; 99285; A9270; J0696; J1885; J1956; J2920; J2930; J7506; J7512

== ENCOUNTER 2019-11-01 22:49 | Observation (INO) ==
--- NOTE | 2019-11-01 23:12 | PROVIDER DOCUMENTATION ---
HPI-Syncope/Dizziness - General Stated Complaint: seizure Time Seen by Provider: 11/01/19 23:04 Source: patient Allergies/Adverse Reactions: Patient Allergies Allergy/AdvReac Type Severity Reaction Status Date / Time Penicillins Allergy Severe ANAPHYLAXIS Verified 08/06/19 05:00 Home Medications: Home Medication List Medication Instructions Recorded Confirmed Last Taken Type Albuterol 2.5MG/Ipratrop 0.5MG 3 ml INH Q4-6H PRN PRN 08/06/19 08/06/19 08/05/19 History [Duoneb (A & A)] Albuterol Sulfate Inhaler 2 puff INH Q4-6H PRN PRN 08/06/19 08/06/19 08/06/19 History [Ventolin Hfa] Divalproex [Depakote] 2 tab PO BID 08/06/19 08/06/19 08/05/19 History Methylprednisolone [Medrol Dosepak] 4 mg PO DIRECTED #1 pkg 08/06/19 Unknown Rx Sertraline [Zoloft] 1 tab PO DAILY 08/06/19 08/06/19 08/05/19 History - History of Present Illness-Syncope/Dizzy Nature of Presenting Problem: Patient was at home and stated that he didnt feel good then the next thing he knew was that his son was kneeling next to him. the son had given him chest compressions for an unknown amount of time. He now complains of pain on the left side of his chest which is worse with breathing or palpation. He has a history of seizures. Last one was 1 year ago. If witnessed syncope, by whom?: son who is not here Prior Episodes: reports: single episode today Onset/Duration: reports: abrupt, just prior to arrival Timing: reports: improving Symptoms prior to episode: reports: unknown (malaise) Context: reports: lost consciousness, became unresponsive Loss of Consciousness: prolonged (minutes) Location of injury. (If syncope resulted in an injury.): reports: none Current Symptoms: reports: chest pain Recently Seen Here or By Another Healthcare Provider: No - Dizziness Severity in ED: reports: mild Review of Systems - Adult - REVIEW OF SYSTEMS - ADULT Constitutional: reports: no symptoms reported Eyes: reports: no symptoms reported Ears, Nose, Mouth & Throat: reports: no symptoms reported Cardiovascular: reports: see HPI Respiratory: reports: see HPI Gastrointestinal: reports: no symptoms reported Genitourinary: reports: no symptoms reported Musculoskeletal: reports: no symptoms reported Integumentary: reports: no symptoms reported Neurological: reports: see HPI Psychiatric: reports: no symptoms reported Endocrine: reports: no symptoms reported Hematologic/Lymphatic: reports: no symptoms reported Past History - Adult - PAST MEDICAL HISTORY-ADULT Review of Records: reports: Old Records Reviewed, Nursing Assessment Review Major Childhood Illnesses: reports: denies history Cardiovascular: reports: denies history Respiratory: reports: COPD Gastrointestinal: reports: denies history Obstetrical/Gynecological: reports: denies history Genitourinary: reports: denies history Musculoskeletal: reports: arthritis Neurological: reports: Seizures/Epilepsy Psychiatric: reports: depression Endocrine/Immune: reports: denies history Other Conditions: reports: denies history - PRIOR SURGERIES/PROCEDURES Surgical/Procedure History: reports: reviewed, not pertinent - IMMUNIZATION STATUS Childhood Immunizations: See Nurse Assessment Flu Vaccine: See Nurse Assessment - FAMILY HISTORY Family History: reviewed, not pertinent Physical Exam-General - PHYSICAL EXAM-ADULT Initial Vital Signs Reviewed: Yes - CONSTITUTIONAL General Appearance: appears well, alert, no apparent distress - EYES Eyes: PERRL/EOMI, pink conjunctivae - HEAD, EARS, NOSE, MOUTH & THROAT HENMT: normocephalic/atraumatic, moist mucous membranes, dental decay, other (no oral lesions or bitting of tongue) - NECK Neck: non-tender, full range of motion, supple - RESPIRATORY Respiratory: lungs clear, normal breath sounds, pain on inspiration - CARDIOVASCULAR Cardiovascular: normal peripheral pulses, regular rate, rhythm, no edema, no gallop, no JVD, no murmur - GASTROINTESTINAL (ABDOMEN) Abdominal Exam: normal bowel sounds, non tender, soft, no organomegaly - LYMPHATIC Lymphatic: no adenopathy - MUSCULOSKELETAL Back Exam: normal inspection, no CVA tenderness, no vertebral tenderness Extremity: normal range of motion, non-tender, normal gait - SKIN Integumentary: normal color, normal turgor, warm/dry - NEUROLOGIC 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 as 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 - PSYCHIATRIC Psych/Mental Status: normal mood/affect, normal thought content Progress - PLAN OF CARE/RESULTS Progress/Plan/Lab Results: Vital Signs - 8 hr 11/01/19 22:55 Temperature 97.7 F Pulse Rate 97 H Respiratory Rate 19 Blood Pressure 123/70 O2 Sat by Pulse Oximetry 93 L Laboratory Results - last 24 hr 11/01/19 11/01/19 11/01/19 22:57 22:57 22:57 WBC 6.14 RBC 5.11 Hgb 15.0 Hct 44.5 MCV 87.1 MCH 29.4 MCHC 33.7 RDW Std Deviation 12.6 Plt Count 117 L MPV 11.6 H Immature Gran % (Auto) 0.0 Neut % (Auto) 51.8 Lymph % (Auto) 25.6 [place] % (Auto) 15.5 H Eos % (Auto) 6.4 Baso % (Auto) 0.7 Immature Gran # (Auto) 0.00 Neut # (Auto) 3.19 Lymph # (Auto) 1.57 [place] # (Auto) 0.95 H Eos # (Auto) 0.39 Baso # (Auto) 0.04 Sodium 140 Potassium 5.0 Chloride 104 Carbon Dioxide 24 L Anion Gap 12 BUN 17 Creatinine 1.2 Estimated GFR/1.73 m2 > 60 BUN/Creatinine Ratio 14 Glucose 104 Calculated Osmolality 281 Calcium 9.1 Creatine Kinase 145 Troponin T < 0.010 Orders Category Date Time Status CHEST-2 VIEWS [RAD] Stat Exams 11/01/19 23:[address] HEAD W/O CONTRAST [CT] Stat Exams 11/01/19 23:20 Taken RIBS ONLY LEFT [RAD] Stat Exams 11/01/19 23:18 Taken BASIC METABOLIC PANEL [CHEM] Stat Lab 11/01/19 22:57 Completed CBC WITH ELECTRONIC DIFF [HEME] Stat Lab 11/01/19 22:57 Completed CK PROFILE [SP CHEM] Stat Lab 11/01/19 22:57 Completed TROPONIN T Stat Lab 11/01/19 22:57 Completed Ketorolac [Toradol] Med 11/02/19 00:35 Discontinued 30 mg IV NOW ONE Result Diagrams: 11/01/19 22:57 11/01/19 22:57 - CONSULTS/PCP/HOSPITALIST Notification #1 *Consult/PCP/Hospitalist*: Dr Jennings Time Discussed: 00:56 Consult Disposition: Will see in ED Departure - Departure Date of Disposition Decision: 11/02/19 Time of Disposition Decision: 00:57 DIAGNOSIS: Syncope and collapse Disposition: ADMITTED INPATIENT 09 Certified Medical Emergency: Emergent Condition: Stable Referrals and Follow-Ups: Cheng Fong MD [Primary Care Provider] - - Critical Care Note This patient required my direct & personal management of CC.: No Attestation - Physician/ MAURO Attestation Patient care was provided by Advanced Practice Provider:: No The physician spent face to face time with patient:: Yes Advanced Practice Provider documentation review:: Supervising physician onsite and consulted in the evaluation and care of this patient. The physician did have a face to face encounter with the patient.
[2019-11-01 23:50] LABS: BASO# 0.04 X1000 (0.0-0.2); BASO% 0.7 % (0.0-0.8); EOS# 0.39 X1000 (0.0-0.7); EOS% 6.4 % (0.0-10.0); HEMATOCRIT 44.5 % (42.0-52.0); LYMPH# 1.57 X1000 (1.2-3.4); LYMPH% 25.6 % (20.5-51.1); MCH 29.4 PG (27-31); MCHC 33.7 g/dL (33-37); MCV 87.1 FL (81-99); MONO# 0.95 X1000 (0.11-0.59); MONO% 15.5 % (1.7-9.3); MPV 11.6 FL (7.4-10.4); NEUT# 3.19 X1000 (1.4-6.5); NEUT% 51.8 % (42.2-75.2); PLT 117 X1000 (130-400); RBC 5.11 XMIL (4.7-6.1); RDW 12.6 % (11.5-14.5); WBC 6.14 X1000 (4.8-10.8)
[2019-11-01 23:57] LABS: AGAP 12; BUN 17 mg/dL (8-22); CALCIUM 9.1 mg/dL (8.8-10.2); CHLORIDE 104 mmol/L (98-107); CK PROFILE 145 U/L (24-204); COSMO 281; CREATININE 1.2 mg/dL (0.7-1.2); ESTIMATED GFR > 60; GLUCOSE 104 mg/dL (70-104); SODIUM 140 mmol/L (136-145); TCO2 24 mmol/L (25-35)
--- NOTE | 2019-11-02 00:10 | ED EKG INTERP ---
This chart was entered by Maribel Ventura Scribe, acting as scribe for Dwayne Hernandez DO. EKG Interpretation - EKG Time of EKG reading by physician:: 23:05 EKG Read and Signed by:: Dwayne Hernandez EKG Interpretation (*Must complete 3 of following elements*): Abnormal (rate- 97 Sinus rhythm w/ premature atrial complexes with aberrant conduction) Rate: 97 Rhythm: Sinus rhythm with premature atrial complexes with aberrant conduction Attestation - Physician/ MAURO Attestation Patient care was provided by Advanced Practice Provider:: No The physician spent face to face time with patient:: Yes Advanced Practice Provider documentation review:: Supervising physician onsite and consulted in the evaluation and care of this patient. The physician did have a face to face encounter with the patient. This chart was documented by the indicated scribe, (Maribel Ventura Scribe) and accurately reflects the services I performed and decisions made by Mary gleason Thomas E., DO, as attested by the provider's signature.
[2019-11-02] MEDS ORDERED: TORADOL IV ONE (00:35)
[2019-11-02] MEDS ORDERED: ZOFRAN IV PRN (02:29)
[2019-11-02] MEDS ORDERED: NORCO-7.5 PO PRN (02:29)
[2019-11-02] MEDS ORDERED: TYLENOL PO PRN (02:29)
[2019-11-02] MEDS: LOVENOX SUBQ SCH (03:11)
[2019-11-02] MEDS: NS 1,000 ML IV SCH ×2 (03:11→16:40)
[2019-11-02] MEDS ORDERED: ATIVAN IV PRN (04:58)
--- NOTE | 2019-11-02 06:05 | HISTORY AND PHYSICAL ---
CHIEF COMPLAINT: Stated seizure activity. HPI: This is a 59-year-old male with a past medical history of epilepsy following traumatic brain injury, also has COPD, history of TIA, GERD and migraines, comes in today after experiencing feeling as if he did not feel well. The next thing he knew his son was kneeling next to him. Apparently his son had given him some chest compressions for an unknown amount of time. He now has a complaint of left-sided chest pain that is worse with inspiration. It is tender to palpation. He stated that he did not lose his bowel or bladder. The reason for his syncopal episode is unknown. He denies hitting his head. He is a somewhat poor historian, however, no family is available. At any rate, he states he has been taking his Depakote. Will check a Depakote level and admit the patient. PAST MEDICAL HISTORY: See HPI. PREVIOUS SURGICAL HISTORY: Right shoulder surgery, sinus surgery. SOCIAL HISTORY: No tobacco, alcohol, illicit drugs. FAMILY HISTORY: Positive for coronary artery disease. No seizures in the family. No diabetes. ALLERGIES: PENICILLIN. HOME MEDICATIONS: 1. Depakote 250 mg 2 tablets p.o. b.i.d. 2. [place] 7.5 q.4-6 p.r.n. 3. DuoNebs q.4-6 p.r.n. REVIEW OF SYSTEMS: A 14-point review of systems was conducted with the patient and pertinent positives listed above in the HPI. All other systems reviewed and found to be negative. PHYSICAL EXAMINATION: VITAL SIGNS: Temperature 97.9, pulse 81, respirations 18, blood pressure 103/72, oxygen saturation 98%. GENERAL: A 59-year-old male lying in the ER stretcher. He is alert and oriented x3, in no acute distress. HEENT: Head is atraumatic, normocephalic. Pupils are equal, round, reactive to light. Extraocular eye movements intact. Sclera is anicteric. Conjunctiva pink. Oral mucosa is moist. Poor dentition noted. No lesions or bites to the tongue noted. Trachea is midline. No cervical lymphadenopathy. NECK: Supple. CARDIAC: S1, S2 appreciated. No murmurs, gallops, rubs. LUNGS: Clear to auscultation bilaterally. No rhonchi, wheezes, rales. Symmetrical rise and fall respirations. ABDOMEN: Soft, nondistended, nontender. Bowel sounds present all 4 quadrants. Normoactive. No pulsatile masses or organomegaly. EXTREMITIES: No clubbing, cyanosis or edema. 2+ pedal pulses. GENITOURINARY: No bladder distention. Patient voids, otherwise deferred. NEUROLOGICAL: Alert and oriented x3. Cranial nerves appear to be grossly intact. DIAGNOSTIC DATA: CT of his head no acute intracranial process. LABORATORY DATA: CBC within normal limits. Chemistry panel within normal limits. CK and troponin within normal limits. Valproic acid pending. ASSESSMENT AND PLAN: 1. Epilepsy with questionable seizure. 2. Questionable transient ischemic attack. 3. Gastroesophageal reflux disease. 4. Chronic obstructive pulmonary disease, stable. 5. Syncope with collapse of unknown etiology. PLAN: Admit patient to the medical floor. It is possible that he had a seizure, however, I am unsure at this time. Will check his valproic acid level, continue seizure medication. It is also possible that he has had a TIA. He has a history of this. Will check an echo and carotid ultrasounds. Will give Protonix 40 mg daily for GERD. Ativan 1 mg has been added to his medication profile for any seizure activity. Continue to monitor patient closely. Further recommendations per patient's clinical course. Dictated by FELICITAS Schmitt for Can Nolan MD cc: FELICITAS Schmitt MD Patient presenting with seizure like activity. I agree with the assessment and plan of the FELICITAS. Dr. Nolan [facility] CENTERDenis
--- NOTE | 2019-11-02 07:09 | EKG Report ---
Test Performed on : 11/02/2019 06:28:09 AM Test Reason : chest pain Blood Pressure : / mmHG Vent. Rate : 094 BPM Atrial Rate : 094 BPM P-R Int : 156 ms QRS Dur : 094 ms QT Int : 350 ms P-R-T Axes : 073 057 067 degrees QTc Int : 437 ms Sinus rhythm. with frequent premature ventricular complexes. Otherwise normal ECG When compared with ECG of 01-NOV-2019 23:01, (Unconfirmed) premature ventricular complexes. are now present aberrant conduction. is no longer present Confirmed by Opal CARCAMO, Betito ([id number]) on 11/03/2019 10:35:01 AM
[2019-11-02] MEDS: PROTONIX PO SCH (07:38)
[2019-11-02] MEDS: DUONEB (A & A) INH PRN ×2 (08:05→15:10)
--- NOTE | 2019-11-02 08:54 | Diag Imaging Result Doc PS360 ---
CHEST-2 VIEWS - 11/01/2019 INDICATION: chest pain/contusion COMPARISON: 11/01/2019 FINDINGS: The lungs are normally expanded and clear. Heart size and mediastinal contours are normal. No pneumothorax or pleural effusion. IMPRESSION: Negative exam. Electronically signed by Cory Dumont 11/02/2019 8:52 AM
--- NOTE | 2019-11-02 09:15 | Diag Imaging Result Doc PS360 ---
RIBS ONLY LEFT - 11/01/2019 INDICATION: contusion to chest TECHNIQUE: Four views COMPARISON: 09/19/2019 FINDINGS: The left-sided ribs are intact and normally mineralized. The left lung is grossly clear. IMPRESSION: Negative exam. Electronically signed by Cory Dumont 11/02/2019 9:13 AM
--- NOTE | 2019-11-02 10:56 | Diag Imaging Result Doc PS360 ---
CT HEAD W/O CONTRAST - 11/01/2019 INDICATION: syncope COMPARISON: 03/09/2019 FINDINGS: There is stable moderate periventricular white matter chronic microvascular ischemia. 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 No intracranial mass or hemorrhage. No midline shift. The skull is intact. The sinuses, mastoids, and middle ears are clear. IMPRESSION: No acute process. This exam was performed using automated exposure control, adjustment of mA or kV according to patient size, and/or use of iterative reconstruction technique Electronically signed by Cory Dumont 11/02/2019 10:54 AM
[2019-11-02] MEDS: NORCO-7.5 PO PRN (11:16)
[2019-11-02] MEDS: DEPAKOTE PO SCH ×2 (11:17→22:18)
--- NOTE | 2019-11-02 12:13 | PROGRESS NOTE ---
DATE: 11/02/2019 SUBJECTIVE: This patient is resting comfortably in bed. He is complaining of chest pain, but is likely related to a musculoskeletal type of pain since he received some CPR at home. As per the patient, he was sitting on the couch and suddenly he passed out and that is the last time he remembered. He woke up already in the ambulance. As per the family, he stopped breathing completely and he received some CPR but I do not have the full details. EKG showed multiple PVCs. I am not quite sure if he has also a blockage, I have requested an evaluation by Cardiology Department and likely he will have either a stress test or a cardiac catheterization. We will continue with telemetry and I will request a magnesium level. OBJECTIVE: Vital Signs: Temperature 97.4 degrees, pulse 81, respiratory rate 18, blood pressure 103/74, oxygen saturation 98 on 2 L of nasal cannula. HEENT: Head normocephalic, no trauma. PERRLA. Poor dentition. Neck: Supple no JVD. No masses. Central trachea. Chest: Clear to auscultation. No wheezing. No rales. Tender to palpation at the level of the left side of the chest wall. Abdomen: Soft, nontender, nondistended. No hepatosplenomegaly. Extremities: No edema, no clubbing, no cyanosis. Neurological: This patient is completely awake, alert, and oriented x3. No focal deficits. LABORATORY DATA: From yesterday, white blood cell count 6.1, hemoglobin 15, hematocrit 44.5, platelets 117,000. Sodium 140, potassium 5, chloride 104, bicarbonate 24, BUN 17, creatinine 1.2, glucose 104, calcium 9.1. Troponin negative x2. ASSESSMENT AND PLAN: 1. Syncope. I do believe it is cardiac related, he has been having multiple premature ventricular contractions. I have requested an evaluation by Cardiology Department. No history of coronary artery disease that I know of. He has a history of seizure disorder and he has been taking valproic acid, but does not look like a seizure episode. He received some CPR at home, he passed while he was on the couch. Probably this patient will need a cardiac workup including a cardiac catheterization. 2. Gastroesophageal reflux disease. Continue with proton pump inhibitors. 3. History of seizure disorder. Continue with Depakote. His blood level is within normal limits. 4. Chronic obstructive pulmonary disease, not in exacerbation. cc: Addison King MD
--- NOTE | 2019-11-02 13:33 | CARDIOLOGY CONSULTATION ---
DATE: 11/02/2019 REASON FOR CONSULTATION: Cardiology was consulted for syncope. HISTORY OF PRESENT ILLNESS: Mr. Goodman is a 59-year-old gentleman with history of seizure disorder with brain injury in the past, has history of COPD. He had been doing well. He was at home with his family, when he felt weak and had syncope. I discussed with his son, who was present at that time, who called 911, found his father to be unresponsive, did not have any obvious seizure activity, was pulseless and not breathing. He initiated CPR. EMS came, and he was awake by then. He was brought to the emergency room and admitted. His cardiac enzymes are negative. His electrocardiogram revealed normal sinus rhythm. Frequent premature ventricular beats were noted. There were no acute ST-T changes to suggest ischemia. The patient does not complain of chest pain suggestive of angina at the present time. However, in the last month or so, he has noticed that when he walks about half a mile, and he has been walking regularly for the last couple of years, he has noticed retrosternal chest discomfort, which he describes as tightness. He also has COPD, for which he has inhalers which he takes on an as needed basis. He was a smoker, quit smoking a couple of years back. However, had smoked for 40 years. REVIEW OF SYSTEMS: A 14-point review of systems was done. GI: There is no history of nausea, vomiting, diarrhea. There is no history of hematemesis or melena. Central Nervous System: No focal weakness to suggest CVA, TIA. : There is no dysuria or hematuria. PAST MEDICAL HISTORY: 1. COPD. 2. History of seizure disorder. 3. Brain injury in the past. SOCIAL HISTORY: Ex-smoker, had smoked for 40 years, quit a couple of years back. There is no history of alcohol or illicit drug abuse. HOME MEDICATIONS: Depakote 250 mg 2 tablets twice daily, [place] p.r.n., DuoNebs p.r.n. ALLERGIES: He is allergic to penicillin. PHYSICAL EXAMINATION: Vital Signs: Blood pressure 103/72. Cardiovascular: Normal jugular venous pressure. There was no thyromegaly. No carotid bruit. First and second heart sounds were heard. There is no S3, S4 gallop. Respiratory: Normal air entry. There are no crepitations or rhonchi. Abdomen: Soft, nontender. There was no guarding or rigidity. Bowel sounds were heard. Central Nervous System: Alert and oriented, was moving all 4 extremities. Extremities: No pedal edema. IMAGIN. Head CT revealed no acute process, chronic microvascular changes noted, old infarct in the lateral temporal lobe/left frontal lobe noted. 2. Chest x-ray unremarkable. 3. X-ray of his ribs negative. LABORATORY DATA: Magnesium 2.3. WBC 6.14, hemoglobin 15, hematocrit 44, platelet count of 117,000. Sodium 140, potassium 5.0, BUN 17, creatinine 1.2. Two sets of cardiac enzymes negative. Valproate level 60 with a normal range of 50 to 100. Electrocardiogram revealed normal sinus rhythm. Premature ventricular beats were noted. There was poor R-wave progression. PVCs likely focus from the outflow tract. ASSESSMENT AND PLAN: Mr. Mitesh Goodman is a 59-year-old gentleman who has history of seizure disorder, chronic obstructive pulmonary disease. Ex-smoker, having smoked for 40 years at least, who had an episode of syncope. Son found him to be unresponsive without pulses. He initiated cardiopulmonary resuscitation, and by the time Emergency Medical Services arrived, he was alert and oriented. The patient has noticed retrosternal chest discomfort on exertion for the last month. Given this, witnessed cardiac arrest, I have recommended that the patient undergo left heart catheterization. Risks, benefits, and alternatives were explained. The patient be set up for left heart catheterization in the morning. 1. Will get an echocardiogram to assess cardiac and valvular function. 2. We will start him on aspirin, low-dose beta-blockers. 3. We will check lab work in the morning as well. Thank you for the consult. Will follow hospital course. cc: Lai Reynoso MD [facility]
[2019-11-02] MEDS: ASPIRIN PO SCH (14:59)
[2019-11-02] MEDS: LOPRESSOR PO SCH (22:18)
[2019-11-03] MEDS: LOVENOX SUBQ SCH (03:09)
[2019-11-03] MEDS: NS 1,000 ML IV SCH ×2 (05:48→21:54)
[2019-11-03] MEDS: PROTONIX PO SCH (06:33)
--- NOTE | 2019-11-03 07:11 | EKG Report ---
Test Performed on : 11/01/2019 11:01:55 PM Test Reason : ED. NO EKG ORDER FOR MUSE Blood Pressure : / mmHG Vent. Rate : 097 BPM Atrial Rate : 097 BPM P-R Int : 152 ms QRS Dur : 082 ms QT Int : 338 ms P-R-T Axes : 065 048 044 degrees QTc Int : 429 ms Sinus rhythm. with premature atrial complexes. with aberrant conduction. Otherwise normal ECG When compared with ECG of 05-AUG-2019 23:12, (Unconfirmed) aberrant conduction. is now present Unconfirmed Result
[2019-11-03 07:36] LABS: AGAP 13; BUN 8 mg/dL (8-22); CALCIUM 8.8 mg/dL (8.8-10.2); CHLORIDE 108 mmol/L (98-107); COSMO 282; CREATININE 0.9 mg/dL (0.7-1.2); ESTIMATED GFR > 60; GLUCOSE 113 mg/dL (70-104); POTASSIUM 4.1 mmol/L (3.5-5.1); SODIUM 142 mmol/L (136-145); TCO2 21 mmol/L (25-35)
[2019-11-03 07:48] LABS: CHOLESTEROL 140 mg/dL (0-200); HDL 38 mg/dL (35-55); LDL 87 mg/dL; TRIGLYCERIDES 75 mg/dL (39-160); VLDL 15 mg/dL
[2019-11-03 08:09] LABS: BASO# 0.03 X1000 (0.0-0.2); BASO% 0.5 % (0.0-0.8); EOS# 0.25 X1000 (0.0-0.7); EOS% 4.2 % (0.0-10.0); HEMOGLOBIN 15.2 g/dL (14.0-18.0); LYMPH# 1.96 X1000 (1.2-3.4); LYMPH% 32.7 % (20.5-51.1); MCH 29.7 PG (27-31); MCHC 33.8 g/dL (33-37); MCV 88.1 FL (81-99); MONO# 0.64 X1000 (0.11-0.59); MONO% 10.7 % (1.7-9.3); NEUT# 3.11 X1000 (1.4-6.5); NEUT% 51.9 % (42.2-75.2); PLT 191 X1000 (130-400); RBC 5.11 XMIL (4.7-6.1); RDW 12.7 % (11.5-14.5); WBC 5.99 X1000 (4.8-10.8)
[2019-11-03] MEDS ORDERED: HEPARIN 1000 UNITS/NS 2,000 UNIT/1,000 ML IV.SOLN ONE ×2 (08:15→12:34)
[2019-11-03 08:18] LABS: INR 1.03; PROTIME 13.6 Seconds (11.0-16.0); PTT 34.7 Seconds (22.3-41.8)
[2019-11-03] MEDS: DUONEB (A & A) INH PRN ×2 (09:46→18:12)
--- NOTE | 2019-11-03 10:11 | PROGRESS NOTE ---
DATE: 11/03/2019 SUBJECTIVE: The patient is resting comfortably in bed. He is not complaining of chest pain or shortness of breath. He is scheduled today to get a cardiac cath. We will monitor. OBJECTIVE: Vital Signs: Temperature 98.2 degrees, pulse 84, respiratory rate 18, blood pressure 95/61, oxygen saturation 97% on 2 L of nasal cannula. HEENT: Head normocephalic, atraumatic. PERRLA. Poor dentition. Neck: Supple. No JVD. No masses. Central trachea. Chest: Clear to auscultation. No wheezing. No rales. Some tenderness to palpation at the level of the left side of the chest wall. Abdomen: Soft, nontender, nondistended. No hepatosplenomegaly. Extremities: No clubbing, no cyanosis. Neurological: The patient is completely awake, alert, and oriented x3. No focal deficits. LABORATORY: WBC 5.9, hemoglobin 15.2, hematocrit 45, platelets 191,000. Sodium 142, potassium 4.1, chloride 108, bicarbonate 21, BUN 8, creatinine 0.9, glucose 113, calcium 8.8. Troponins negative x4. TSH slightly elevated at 6.2. ASSESSMENT AND PLAN: 1. Syncope, probably cardiac related. He is also complaining of chest pain. Apparently, he received some CPR at home and that is why he is having some chest wall pain. He has a history of seizure disorder as well, but he is on seizure medications. He will have a cardiac catheterization today. We will wait for the results. 2. History of seizure disorder, aware. 3. Gastroesophageal reflux disease. Continue proton pump inhibitors. 4. Chronic obstructive pulmonary disease, not in exacerbation. 5. History of tobacco use. This patient already stopped smoking, but I think he smoked for the past 40 years. cc: Addison King MD
[2019-11-03] MEDS: ASPIRIN PO SCH (10:51)
[2019-11-03] MEDS: DEPAKOTE PO SCH ×2 (10:51→21:07)
[2019-11-03] MEDS: LOPRESSOR PO SCH (10:51)
[2019-11-03] MEDS ORDERED: ANESTHESIA PB SET 88 IN 5742 ONE (13:47)
[2019-11-03] MEDS ORDERED: VERSED ONE (13:47)
[2019-11-03] MEDS ORDERED: DILAUDID ONE (13:47)
[2019-11-03] MEDS ORDERED: NS 1,000 ML ONE (13:47)
[2019-11-03] MEDS ORDERED: CLAVE TWINSITE 32 IN 11959 ONE (13:47)
--- NOTE | 2019-11-03 14:16 | ECHO REPORT ---
ORDER DATE: 11/02/2019 INTERPRETING PHYSICIAN: Dr. Lai Reynoso ECHOCARDIOGRAPHIC MEASUREMENTS: 1. Interventricular septum: 1.0 cm. 2. Left ventricular posterior wall: 0.8 cm. 3. Diastolic diameter: 4.4 cm. 4. Left atrium: 3.3 cm. 5. Aorta: 2.5 cm. SUMMARY OF THE 2-DIMENSIONAL IMAGIN. Aortic valve leaflets are trileaflet. 2. Pulmonic valve was normal. 3. Tricuspid valve was normal. 4. Mitral valve was normal. 5. Normal right ventricular cavity size and function. 6. Normal left ventricular cavity size. 7. Estimated ejection fraction of 60%. 8. There is mild mitral regurgitation. 9. Mild tricuspid regurgitation. 10. Peak velocity across the tricuspid valve less than 2 meters per second. 11. There is mild mitral regurgitation. 12. Peak velocity across the aortic valve less than 2 meters per second. 13. There is no aortic stenosis or regurgitation. 14. There is no pericardial effusion or obvious intracardiac mass or thrombus seen. cc: MD Edson Millan CRNP
--- NOTE | 2019-11-03 15:05 | CARDIAC CATH REPORT ---
PROCEDURE NAME: - INDICATIONS FOR PROCEDURE: Cardiac arrest. PROCEDURES PERFORMED: 1. Left heart catheterization. 2. Selective coronary angiography. PROCEDURE IN DETAIL: Mr. Goodman was brought to the catheterization laboratory in a fasting state. Informed Consent was obtained. He was prepped in the usual fashion. He was anesthetized over the right radial artery after Edwar's test proved adequate. A 5-Cam[place] sheath was placed. Radial cocktail was administered. Catheters were introduced. Hemodynamic measurements were made in the ascending thoracic aorta. Coronary angiography was performed on multiple views using JL35 and JR4 diagnostic catheters. A left heart catheterization was performed using the JR4. At the conclusion of procedure, all sheaths and catheters were removed. TR band was left inflated at 11 mL of air with good capillary refill. Good hemostasis. No apparent complications. 40 mL of IV contrast with 5-10 mL of blood loss. FINDINGS: 1. Coronary angiography. 2. Left main originates from the left coronary cusp. On some views, there may be a 10 to 20 percent mid to distal vessel tapering lesion. Otherwise, the left main otherwise appears normal. 3. Left anterior descending originates from the left main. There does not appear to be any luminal irregularities on this study. 4. Circumflex originates from the left main. There do not appear to be any significant luminal irregularities identified within the territory of the circumflex. 5. Right coronary originates from the right coronary cusp. There may be some slight catheter- induced spasm at the ostium. It did not damp. It does not appear to be flow-limiting at all. The remainder of the vessel appears normal. It is a right dominant circulation. 6. Left ventriculogram demonstrates normal ejection fraction. Estimated EF is 60% with normal wall motion. 7. Left ventricle pressure 114/7 with an LVEDP of 17. Aortic blood pressure 126/66 with a mean of 94. ASSESSMENT: Mr. Goodman is a 59-year-old gentleman who presented with cardiac arrest. PLAN: At this point, he does not appear to have any significant flow-limiting disease. He will return to the floor for usual postprocedure convalescence. He appears to have normal wall motion. cc: Dave Chase MD
[2019-11-03] MEDS: NORCO-7.5 PO PRN (17:13)
[2019-11-04] MEDS: LOVENOX SUBQ SCH (02:13)
[2019-11-04] MEDS: PROTONIX PO SCH (06:31)
[2019-11-04 07:06] LABS: AGAP 9; BUN 7 mg/dL (8-22); CALCIUM 8.6 mg/dL (8.8-10.2); CHLORIDE 112 mmol/L (98-107); COSMO 288; CREATININE 0.7 mg/dL (0.7-1.2); ESTIMATED GFR > 60; GLUCOSE 89 mg/dL (70-104); POTASSIUM 4.5 mmol/L (3.5-5.1); SODIUM 146 mmol/L (136-145); TCO2 25 mmol/L (25-35)
[2019-11-04 07:39] VITALS: BP 103/63
[2019-11-04] MEDS: DUONEB (A & A) INH PRN (08:57)
[2019-11-04] MEDS: ASPIRIN PO SCH (09:08)
[2019-11-04] MEDS: NS 1,000 ML IV SCH (09:08)
[2019-11-04] MEDS: DEPAKOTE PO SCH (09:08)
--- NOTE | 2019-11-04 11:29 | DISCHARGE SUMMARY ---
ADMISSION DATE: 11/02/2019 DISCHARGE DATE: 11/04/2019 DIAGNOSES: 1. Syncope, probably cardiac related. 2. Chest pain. 3. History of seizure disorder. 4. Gastroesophageal reflux disease. 5. Chronic obstructive pulmonary disease. 6. History of tobacco use and abuse. CONSULTS: Dr. Reynoso, Cardiology. DIAGNOSTICS: 1. X-ray of the ribs revealed negative exam. 2. Chest x-ray negative exam. 3. CT of the head revealed no acute process. 4. Echocardiogram revealed ejection fraction of 60% with normal left ventricular cavity size, normal right ventricular cavity size. No pericardial effusion or obvious intracardiac mass or thrombus seen. 5. Cardiac catheterization revealed the patient does not appear to have any significant flow- limiting disease. Left main originates from the left coronary cusp. There may be 10 to 20 percent mid to distal vessel tapering lesion. Otherwise, left main appears normal. Left anterior descending originates from the left main. There does not appear to be any luminal irregularities on this study. Circumflex originates from the left main. There does not appear to be any significant luminal irregularities identified within the territory of the circumflex. Right coronary artery originates from the right coronary cusp. There may be some slight catheter-induced spasm at the ostium. It did not dampen. It does not appear to be flow limiting at all. It is a right-dominant circulation. Left ventriculogram demonstrates normal ejection fraction estimated at 60% with normal wall motion. HOSPITAL COURSE: Mr. Goodman presented to the emergency room after being found unresponsive, pulseless, and not breathing by his son who initiated CPR on the patient while lying on the couch. On EMS arrival the patient was awake and stable. EKG revealed sinus rhythm with frequent PVCs with no STT changes. The patient did state that over the month prior he had noticed after walking about half a mile, he had retrosternal chest discomfort. Therefore, he underwent a cardiac cath which showed no significant flow-limiting disease as stated above. He had no syncopal episodes. He had no chest pain while in the hospital. Thankfully, he is ready for discharge. DISCHARGE VITAL SIGNS: Blood pressure is 103/63 with a heart rate of 87, respirations are 20, temperature 97.7 degrees with O2 saturations 96 to 97 percent on room air, PHYSICAL EXAMINATION: Cardiovascular: Regular rate and rhythm. S1 and S2 appreciated. Pulmonary: Breath sounds are clear. No increased work of breathing noted. Gastrointestinal: Abdomen is soft, nontender, nondistended with bowel sounds in all 4 quadrants. Neurologic: He is alert and oriented x3. DISCHARGE MEDICATIONS: 1. Protonix 40 mg p.o. daily. 2. Aspirin 81 mg p.o. daily. 3. DuoNeb q.4-6 hours p.r.n. 4. Depakote 250 mg tablets 2 tablets b.i.d. FOLLOWUP: 1. Dr. Reynoso. An appointment will be arranged by his office. 2. Dr. Spencer. He needs to call to schedule an appointment in 2 to 3 weeks to update him on events that have happened. 3. Dr. Fong as needed. DISCHARGE INSTRUCTIONS: The patient is to [facility] discharge from the hospital. He will have a monitor placed at this time. The patient and family members have been instructed of this and do voice understanding. He has been instructed to call to be seen sooner or return to the ER for any syncope, dizziness, chest pain, palpitations, any shortness of breath, cough, fever, chills, any night sweats, or for any questions or concerns that he may have. DISPOSITION: He is being discharged home in stable condition with family members. TIME SPENT: This is a greater than 30 minute discharge. Dictated by FELICITAS Robles for Addison King MD cc: MD Monika Guerrero CRNP Omar J. Sosa-Chirinos, MD Kenneth E. Mashburn
--- NOTE | 2019-11-05 12:40 | Carotid Study ---
DATE: 11/03/2019 REFERRING PHYSICIAN: Dr. Zelaya. INTERPRETING PHYSICIAN: Dr. Rico. BLOCK PILER: Padmini. INDICATION: The patient has had a TIA and syncope. FINDINGS: Velocities are noted. The right internal to common carotid ratio is 0.8, left 0.7. Present stenosis 0 to 39 on the right, 0 to 39 on the left. INTERPRETATION: No significant plaque disease identified. There is antegrade vertebral flow bilaterally. This study has not changed significantly compared to the study of 1 year ago. cc: MD Edson Villegas CRNP
== END 2019-11-04 10:20 | disposition home or self-care (01) ==
LOC: SUPCPDRO → ED 22:49 → 3N 22:49 → SUATTDRO 11-02 01:59 → 2N 11-03 14:53
PROVIDERS: ATTEND Internal Medicine